=== PATIENT | female | born 1940 | race Caucasian/White ===

== ENCOUNTER → 2016-06-01 | Outpatient (CLI) | payer MEDICARE ==
[2016-06-01 08:29] LABS: EKG EKG PERFORMED
[2016-06-01 09:16] LABS: Basophils % (A) 1 %; CH 28.5; Eosinophils # (A) 0.3 k/uL (0-0.7); Eosinophils % (A) 5 %; HCT 39.8 % (34.0-46.0); HDW 2.48; HGB 12.3 gm/dL (11.4-16.0); Hypochromasia Slight; Luc # (Auto) 0.07; Luc % (Auto) 1; Lymphocytes # (A) 1.2 k/uL (1.0-4.8); Lymphocytes % (A) 21 %; MCH 28.5 pg (25.0-35.0); MCHC 30.9 g/dL (31.0-37.0); MCV 92.4 fL (80.0-100.0); Mean Platelet Volume 7.3; Monocytes # (A) 0.3 k/uL (0-1.0); Monocytes % (A) 6 %; Neutrophils # (A) 3.8 k/uL (1.3-7.7); Neutrophils % (A) 67 %; RDW 13.7 % (11.5-15.5); WBC 5.7 k/uL (3.8-10.6)
[2016-06-01 09:20] LABS: INR 1.1 (<1.1); Partial Thromboplastin Time 23.3 sec (22.0-30.0); Prothrombin Time 10.7 sec (9.0-12.0)
[2016-06-01 09:51] LABS: Anion Gap 11 mmol/L; Blood Urea Nitrogen 23 mg/dL (7-17); Calcium 9.5 mg/dL (8.4-10.2); Carbon Dioxide 26 mmol/L (22-30); Chloride 105 mmol/L (98-107); Glucose 192 mg/dL (74-99); Non-African American GFR(MDRD) 50 (>60 ml/min/1.73 sqM); Potassium 4.6 mmol/L (3.5-5.1); Sodium 142 mmol/L (137-145)
== END | disposition home or self-care (01) ==
LOC: LABPAT 08:15
PROVIDERS: ATTEND Urology
DX: Z01.810 Encounter for preprocedural cardiovascular examination (principal); N20.1 Calculus of ureter; R07.9 Chest pain, unspecified; R53.83 Other fatigue; R35.0 Frequency of micturition; E11.9 Type 2 diabetes mellitus without complications
CPT/HCPCS: 80048; 85025; 85610; 85730; 87077; 87086; 87186; 93005

== ENCOUNTER → 2016-07-25 | Outpatient (CLI) | payer MEDICARE ==
--- NOTE | 2016-07-25 09:35 | XR ---
EXAMINATION TYPE: XR KUB DATE OF EXAM: 07/25/2016 9:28 AM CLINICAL HISTORY: Right-sided stent and kidney stone. TECHNIQUE: 2 supine KUB images of the abdomen are obtained COMPARISON: CT abdomen pelvis May 02, 2016. FINDINGS: There is new right sided double-J ureter stent. Previously visualized 8 mm right mid ureter calculus is not clearly identified. Some scattered pelvic phleboliths are felt present. No left-side d nephrolithiasis is seen. Some vascular calcification is also redemonstrated. Large gallstones right upper quadrant are again seen. There is redemonstration of 6 mm intrahepatic g allstone. There is overall nonobstructive bowel gas pattern. Mild to moderate axial joint space loss in both hips is seen. Degenerative spurring greater trochanter level right hip is redemonstrated. Spu rring and subchondral cystic change pubic symphysis is noted. There is disc space narrowing with vacu um disc phenomenon right L2-L3 level. IMPRESSION: Suspect interval successful treatment and passage of right mid ureter calculus.
== END | disposition home or self-care (01) ==
LOC: RADXRMAIN 09:18
PROVIDERS: ATTEND Urology
DX: N20.1 Calculus of ureter (principal)
CPT/HCPCS: 74000

== ENCOUNTER → 2016-08-29 | Outpatient (CLI) | payer MEDICARE ==
--- NOTE | 2016-08-29 08:44 | XR ---
EXAMINATION TYPE: XR abdomen 1V DATE OF EXAM: 08/29/2016 7:47 AM COMPARISON: 07/25/2016 INDICATION: Hydronephrosis renal stones TECHNIQUE: Single view abdomen frontal projection FINDINGS: Normal colonic bowel gas is present. Fecal debris is within the transverse colon. Nonspecific small b owel gas is in the mid abdomen. Gallstones are in the right upper quadrant. Psoas margins are normal. There is a 0.7 cm calcification near the level of the proximal right 11th rib of uncertain etiology may be as a renal stone. No organomegaly is present. IMPRESSION: 1. Cholelithiasis. 2. Possible superior pole renal stone present previously.
--- NOTE | 2016-08-29 09:18 | US ---
EXAMINATION TYPE: US renals and bladder DATE OF EXAM: 08/29/2016 7:39 AM COMPARISON: 05/02/[address] CLINICAL HISTORY: R93.4 hydronephrosis. EXAM MEASUREMENTS: Right Kidney: 10.0 x 5.7 x 5.3 cm Left Kidney: 11.6 x 5.3 x 4.8 cm Post Void Residual Volume: * Bladder sub optimally full Right Kidney: Previous Hydronephrosis and renal calculi are not seen on this study. Kidney appears s omewhat lobated. Left Kidney: Small renal cysts as seen previously. Kidney appears somewhat lobated. Bladder: Sub optimally full. No masses seen. Urinary bladder is limited distention. Bilateral Jets seen: Yes Normal Post Void Residual: Not completed. There is no evidence for hydronephrosis at this point in time. No nephrolithiasis is seen. No dexter s are identified. The urinary bladder is anechoic. Bilateral ureteral jets are seen. IMPRESSION: 1. Left renal cysts. 2. Previous hydronephrosis is not evident at this time.
== END ==
LOC: RADUSMAIN 07:12
PROVIDERS: ATTEND Urology
DX: Z09 Encounter for follow-up examination after completed treatment for conditions other than malignant neoplasm (principal); N28.1 Cyst of kidney, acquired; K80.20 Calculus of gallbladder without cholecystitis without obstruction
CPT/HCPCS: 74000; 76770

== ENCOUNTER → 2016-09-07 | Outpatient (CLI) | payer MEDICARE ==
--- NOTE | 2016-09-07 14:55 | MM ---
Reason for exam: follow-up at short interval from prior study. Last mammogram was performed 8 months ago. History: Patient is postmenopausal and has history of breast cancer at age 75. Family history of breast cancer in mother and breast cancer in grandmother. Benign MG pre op needle loc LT of the left breast, June 23, 2015. Malignant stereotactic core biopsy, May 2015. Benign US biopsy breast VAD LT of the left breast, September 25, 2014. Physical Findings: Nurse did not find any significant physical abnormalities on exam. MG Diagnostic Mammo LT w CAD CC, MLO, and ML view(s) were taken of the left breast. Prior study comparison: December 25, 2015, bilateral MG 3d diag mammo w/cad BENNY. May 25, 2015, left breast MG 3d diag mammo w/cad LT. The breast tissue is heterogeneously dense. This may lower the sensitivity of mammography. No suspicious calcifications are seen. Stable post lumpectomy changes in the left breast. Continued skin thickening and cranial caudal recommended. Consider punch biopsy if clinically indicated. No significant new findings when compared with previous films. These results were verbally communicated with the patient and result sheet given to the patient on 09/07/16. ASSESSMENT: Probably benign, BI-RAD 3 RECOMMENDATION: Follow-up diagnostic mammogram of both breasts in 4 months. Back on schedule for December 2016. Manage patient on a clinical basis.
== END | disposition home or self-care (01) ==
LOC: RADMAMWWP 13:35
PROVIDERS: ATTEND Family Medicine
DX: D49.3 Neoplasm of unspecified behavior of breast (principal)

== ENCOUNTER → 2017-01-25 | Outpatient (CLI) | payer MEDICARE ==
--- NOTE | 2017-01-27 09:11 | MM ---
Reason for exam: follow-up at short interval from prior study. Last mammogram was performed 5 months ago. History: Patient is postmenopausal and has history of breast cancer at age 75. Family history of breast cancer in mother and breast cancer in grandmother. Benign MG pre op needle loc LT of the left breast, June 23, 2015. Malignant stereotactic core biopsy, May 2015. Benign US biopsy breast VAD LT of the left breast, September 25, 2014. Physical Findings: Nurse did not find any significant physical abnormalities on exam. MG 3D Diag Mammo W/Cad BENNY Bilateral CC and MLO view(s) were taken. Prior study comparison: September 07, 2016, left breast MG diagnostic mammo LT w CAD. December 25, 2015, bilateral MG 3d diag mammo w/cad BENNY. There are scattered fibroglandular densities. There is continued left breast skin thickening. Post surgical biopsy clips. No significant new findings when compared with previous films. These results were verbally communicated with the patient and result sheet given to the patient on 01/25/17. ASSESSMENT: Probably benign, BI-RAD 3 RECOMMENDATION: Follow-up diagnostic mammogram of the left breast in 6 months. Manage patient on a clinical basis, skin thickening in left breast.
== END | disposition home or self-care (01) ==
LOC: RADMAMWWP 15:04
PROVIDERS: ATTEND Internal Medicine Hematology & Oncology
DX: R92.8 Other abnormal and inconclusive findings on diagnostic imaging of breast (principal)
CPT/HCPCS: G0204; G0279

== ENCOUNTER → 2017-07-31 | Outpatient (CLI) | payer MEDICARE ==
--- NOTE | 2017-07-31 09:18 | BD ---
EXAMINATION TYPE: MG DEXA axial skeleton. DATE OF EXAM: 07/31/2017 COMPARISON: 2016 CLINICAL HISTORY: osteopenia. Postmenopausal female. Height: 5'5 Weight: 171 FRAX RISK QUESTIONS: Alcohol (3 or more units per day): no Family History (Parent hip fracture): no Glucocorticoids (More than 3mos): no (Ex: prednisone, prednisolone, methylprednisolone, dexamethasone, and hydrocortisone). History of Fracture in Adulthood: no Secondary Osteoporosis: 1. Type 1 Diabetes: no 2. Hyperthyroidism: no 3. Menopause before 45: no 4. Malnutrition: no 5. Chronic liver disease: no Rheumatoid Arthritis: no Current Tobacco Use: no RISK FACTORS HISTORY OF: Family History of Osteoporosis: Active: Postmenopausal woman: MEDICATIONS: Additional Medications: heart ,blood thinner Additional History: breast cancer 2014 EXAM MEASUREMENTS: Bone mineral densitometry was performed using the [employer] System. Bone mineral density as measured about the Lumbar spine is: ----- L1-L4(G/cm2): 1.240 T Score Values are as follows: ----- L2: 1.3 ----- L3: 2.1 ----- L4: -0.7 ----- L1-L4: 0.5 Bone mineral density has: Increased 1.2% since study of: 12/25/2015 Bone mineral density about the R hip (g/cm2): 0.727 Bone mineral density about the L hip (g/cm2): 0.723 T Score values are as follows: -----R Neck: -2.2 -----L Neck: -2.3 -----R Total: -1.6 -----L Total: -1.4 Bone mineral density has: Decreased -4.5% since study of: 12/25/2015 IMPRESSION: Osteopenia (T Score between -2.5 and -1). There is slightly increased risk of fracture and the patient may be considered for treatment. Re-Screen 2-5 years. NOTE: T-SCORE=SD OF THE YOUNG ADULT MEAN.
--- NOTE | 2017-07-31 11:56 | MM ---
Reason for exam: follow-up at short interval from prior study. Last mammogram was performed 6 months ago. History: Patient is postmenopausal and has history of breast cancer at age 75. Family history of breast cancer in mother and breast cancer in grandmother. Benign MG pre op needle loc LT of the left breast, June 23, 2015. Malignant stereotactic core biopsy, May 2015. Benign US biopsy breast VAD LT of the left breast, September 25, 2014. Physical Findings: Nurse did not find any significant physical abnormalities on exam. MG 3D Diag Mammo W/Cad LT CC and MLO view(s) were taken of the left breast. Prior study comparison: January 25, 2017, bilateral MG 3d diag mammo w/cad BENNY. September 07, 2016, left breast MG diagnostic mammo LT w CAD. There are scattered fibroglandular densities. No suspicious abnormality. Post therapy changes on the left breast. These results were verbally communicated with the patient and result sheet given to the patient on 07/31/17. ASSESSMENT: Benign, BI-RAD 2 RECOMMENDATION: Follow-up diagnostic mammogram of both breasts in 6 months.
== END | disposition home or self-care (01) ==
LOC: RADBDWWP 08:13
PROVIDERS: ATTEND Internal Medicine Hematology & Oncology
DX: C50.412 Malignant neoplasm of upper-outer quadrant of left female breast (principal); M85.80 Other specified disorders of bone density and structure, unspecified site; N95.1 Menopausal and female climacteric states; Z79.890 Hormone replacement therapy
CPT/HCPCS: 77080; 77065; G0279

== ENCOUNTER → 2018-02-02 | Outpatient (CLI) | payer MEDICARE ==
--- NOTE | 2018-02-02 11:16 | MM ---
Reason for exam: additional evaluation requested from prior study. Last mammogram was performed 6 months ago. History: Patient is postmenopausal and has history of breast cancer at age 75. Family history of breast cancer in mother and breast cancer in grandmother. Benign MG pre op needle loc LT of the left breast, June 23, 2015. Malignant stereotactic core biopsy, May 2015. Benign US biopsy breast VAD LT of the left breast, September 25, 2014. Physical Findings: Nurse did not find any significant physical abnormalities on exam. MG 3D Diag Mammo W/Cad BENNY Bilateral CC and MLO view(s) were taken. Technologist: Natalie Casanova RT (R)(M) Prior study comparison: July 31, 2017, left breast MG 3d diag mammo w/cad LT. January 25, 2017, bilateral MG 3d diag mammo w/cad BENNY. There are scattered fibroglandular densities. Post surgical changes on the left breast. No significant new findings when compared with previous films. These results were verbally communicated with the patient and result sheet given to the patient on 02/02/18. ASSESSMENT: Benign, BI-RAD 2 RECOMMENDATION: Follow-up diagnostic mammogram of both breasts in 1 year.
== END | disposition home or self-care (01) ==
LOC: RADMAMWWP 09:27
PROVIDERS: ATTEND Internal Medicine Hematology & Oncology
DX: R92.8 Other abnormal and inconclusive findings on diagnostic imaging of breast (principal); Z85.3 Personal history of malignant neoplasm of breast
CPT/HCPCS: 77066; G0279; 77062

== ENCOUNTER → 2019-02-20 | Outpatient (CLI) | payer MEDICARE ==
--- NOTE | 2019-02-20 08:40 | MM ---
Reason for exam: additional evaluation requested from prior study. Last mammogram was performed 1 year and 1 month ago. History: Patient is postmenopausal and has history of breast cancer at age 75. Family history of breast cancer in mother and breast cancer in grandmother. Benign MG pre op needle loc LT of the left breast, June 23, 2015. Malignant stereotactic core biopsy, May 2015. Benign US biopsy breast VAD LT of the left breast, September 25, 2014. Physical Findings: Nurse did not find any significant physical abnormalities on exam. MG 3D Diag Mammo W/Cad BENNY Bilateral CC and MLO view(s) were taken. Prior study comparison: February 02, 2018, bilateral MG 3d diag mammo w/cad BENNY. July 31, 2017, left breast MG 3d diag mammo w/cad LT. There are scattered fibroglandular densities. Stable post operative changes in the left breast. No suspicious mass or calcifications. These results were verbally communicated with the patient and result sheet given to the patient on 02/20/19. ASSESSMENT: Benign, BI-RAD 2 RECOMMENDATION: Follow-up diagnostic mammogram of both breasts in 1 year.
--- NOTE | 2019-02-20 12:21 | BD ---
EXAMINATION TYPE: Axial Bone Density DATE OF EXAM: 02/20/2019 COMPARISON: 2018 CLINICAL HISTORY: breast cancer Height: 5'4 05/23 Weight: 162 FRAX RISK QUESTIONS: History of Fracture in Adulthood: y Secondary Osteoporosis: RISK FACTORS HISTORY OF: Postmenopausal woman: y MEDICATIONS: Osteoporosis Medications: Which medication: Actonel How Lon years Additional Medications: heart , breast cancer Additional History: breast cancer EXAM MEASUREMENTS: Bone mineral densitometry was performed using the [employer] System. Bone mineral density as measured about the Lumbar spine is: ----- L1-L4(G/cm2): 1.227 T Score Values are as follows: ----- L2: 1.9 ----- L3:-0.1 ----- L4: -0.2 ----- L1-L4: 0.4 Bone mineral density has: Decreased -2.5% since study of: 12/31/2017 Bone mineral density about the R hip (g/cm2): 0.717 Bone mineral density about the L hip (g/cm2): 0.749 T Score values are as follows: -----R Neck: --2.3 -----L Neck: -2.1 -----R Total: -1.4 -----L Total: -1.0 Bone mineral density has: Increased 4.6% since study of: 07/31/2017 IMPRESSION: Osteopenia right femora. NOTE: T-SCORE=SD OF THE YOUNG ADULT MEAN.
== END | disposition home or self-care (01) ==
LOC: RADMAMWWP 07:53
PROVIDERS: ATTEND Internal Medicine Hematology & Oncology
DX: C50.412 Malignant neoplasm of upper-outer quadrant of left female breast (principal); M85.88 Other specified disorders of bone density and structure, other site; N95.1 Menopausal and female climacteric states; Z85.3 Personal history of malignant neoplasm of breast; Z79.890 Hormone replacement therapy
CPT/HCPCS: 77080; 77066; G0279; 77062

== ENCOUNTER 2019-08-12 17:06 | Inpatient (IN) | payer MEDICARE ==
[2019-08-12 17:14] LABS: Glucose,Whole Blood 222 mg/dL (75-99)
[2019-08-12 17:32] LABS: Basophils % (A) 0 %; Eosinophils # (A) 0.3 k/uL (0-0.7); Eosinophils % (A) 5 %; HCT 47.2 % (34.0-46.0); HGB 15.4 gm/dL (11.4-16.0); Lymphocytes % (A) 14 %; MCH 30.3 pg (25.0-35.0); MCHC 32.7 g/dL (31.0-37.0); MCV 92.8 fL (80.0-100.0); Mean Platelet Volume 7.5; Monocytes # (A) 0.4 k/uL (0-1.0); Monocytes % (A) 5 %; Neutrophils # (A) 5.5 k/uL (1.3-7.7); Neutrophils % (A) 75 %; Platelet Count 257 k/uL (150-450); RBC 5.09 m/uL (3.80-5.40); RDW 13.3 % (11.5-15.5); WBC 7.3 k/uL (3.8-10.6)
[2019-08-12 17:40] LABS: Creatine Kinase 54 U/L (30-135)
--- NOTE | 2019-08-12 17:40 | CT ---
EXAMINATION TYPE: CT brain wo con for TPA DATE OF EXAM: 08/12/2019 HISTORY: Altered mental status. CT DLP: 1102.8 mGycm. Automated Exposure Control for Dose Reduction was Utilized. TECHNIQUE: CT scan of the head is performed without contrast. COMPARISON: CT Brain July 14 2010. FINDINGS: There is no acute intracranial hemorrhage or midline shift identified. There is diffuse v entricular and sulcal prominence consistent with diffuse age-related cerebral atrophy. There is low- attenuation in the periventricular white matter consistent with chronic small vessel ischemic change. The globes are intact and the visualized sinuses are clear. IMPRESSION: No acute intracranial hemorrhage or midline shift. There is mild diffuse age-related ce rebral atrophy and chronic small vessel ischemic change identified on current study slightly progress ed from 2011 CT.
[2019-08-12 17:41] LABS: INR 0.9 (<1.2); Partial Thromboplastin Time 23.7 sec (22.0-30.0); Prothrombin Time 9.9 sec (9.0-12.0)
[2019-08-12 17:52] LABS: Creatine Kinase MB 2.2 ng/mL (0.0-2.4); Troponin I <0.012 ng/mL (0.000-0.034)
[2019-08-12 17:54] LABS: Albumin 4.5 g/dL (3.5-5.0); Calcium 9.5 mg/dL (8.4-10.2); Potassium 4.8 mmol/L (3.5-5.1); Total Bilirubin 0.8 mg/dL (0.2-1.3); Total Protein 7.1 g/dL (6.3-8.2)
--- NOTE | 2019-08-12 17:59 | XR ---
EXAMINATION TYPE: XR chest 2V DATE OF EXAM: 08/12/2019 COMPARISON: NONE HISTORY: Weakness and facial droop. TECHNIQUE: Frontal and lateral views of the chest are obtained. FINDINGS: Elevated right hemidiaphragm. There is chronic parenchymal change without suspicious focal air space opacity, pleural effusion, or pneumothorax seen. The cardiac silhouette size is enlarged. Overlying EKG leads. The osseous structures are demineralized. IMPRESSION: Cardiomegaly and chronic parenchymal changes with elevated right hemidiaphragm. No suspi cious acute pulmonary infiltrate.
--- NOTE | 2019-08-12 18:07 | CT ---
EXAMINATION TYPE: CT angio head neck DATE OF EXAM: 08/12/2019 HISTORY: Altered mental status. COMPARISON: CT brain earlier today CT DLP: 351.3 mGycm. Automated Exposure Control for Dose Reduction was Utilized. TECHNIQUE: CTA scan of the head and neck are performed with IV Contrast, patient injected with 65ml mL of Isovue 370, axial images are obtained, coronal and sagittal reformatted images are reviewed. Th ree-D reconstructed images are created on an independent workstation and reviewed. FINDINGS: Carotid/Vascular Structures: Normal three-vessel origin from aortic arch. Right common carotid artery shows normal origin from right brachiocephalic artery. Severe mixed plaque origin of right external carotid artery likely cause significant stenosis. More mild plaque at right carotid bulb. No signific ant plaque or stenosis in the right common or internal carotid artery. No significant plaque or stenosis in left common or internal carotid arteries including carotid bulb. Patent external carotid artery without significant plaque or stenosis. Tortuous course to the proxim al to mid left internal carotid artery with medial deviation axial image 53. Codominant vertebrobasilar system. Vertebral arteries are patent to basilar junction. Hypoplastic hortencia ateral posterior communicating arteries. No significant focal stenosis or aneurysmal change. Images of the anterior circulation show patent anterior communicating artery. There is no significant focal stenosis or aneurysmal change seen. Other: Dextroconvex scoliosis centered C6 level. Multilevel disc space narrowing and spurring C4-C5 t hrough the C6-C7 levels. Small focus of groundglass opacity right lung apex axial image 21, correlate clinically. Edema and/or infiltrate are in the differential. IMPRESSION: 1. No significant stenosis in common or internal carotid arteries bilaterally. 2. No significant stenosis or aneurysmal change at the level of the [place].
--- NOTE | 2019-08-12 18:16 | ED ---
General Adult HPI - General Chief complaint: Neuro Symptoms/Deficit Stated complaint: Stroke Symptoms Time Seen by Provider: 08/12/19 17:10 Source: EMS Mode of arrival: EMS Limitations: no limitations - History of Present Illness Initial comments: The patient is an 79-year-old female with history of A. fib on Eliquis who presents to the emergency department at 5 pm with reported left-sided facial droop and left upper extremity weakness. Patient states that she did not feel well yesterday. Today she was attempting to use the restroom around 1 PM when she states that her legs collapsed underneath her. She stated that her daughter then assisted her to bed and her daughter noted facial drooping. The patient denies a previous history of CVA or deficits. She does take Eliquis for afib and has been compliant with it. Last dose was taken this morning. She reports a recent UTI and is on her last day of Macrobid. Denies any chest pain or shortness of breath. No headaches or visual changes. Denies vertigo or ataxia. Admits to slurring of her speech. No fevers, chills, cough, shortness of breath. There are no alleviating, precipitating or modifying factors - Related Data Home Medications Medication Instructions Recorded Confirmed Anastrozole [Arimidex] 1 mg PO DAILY 05/02/16 08/12/19 Glimepiride [Amaryl] 1 mg PO DAILY 05/02/16 08/12/19 metFORMIN HCL 1,000 mg PO BID 05/02/16 08/12/19 Cranberry Fruit Extract [Cranberry] 500 mg PO DAILY 08/12/19 08/12/19 Empagliflozin [Jardiance] 25 mg PO DAILY 08/12/19 08/12/19 Green Tea [place] Extract [Green Tea 250 mg PO DAILY 08/12/19 08/12/19 Extract] Metoprolol Tartrate [Lopressor] 25 mg PO DAILY 08/12/19 08/12/19 Nitrofurantoin Monohyd/M-Cryst 100 mg PO Q12H 08/12/19 08/12/19 [Macrobid] Allergies Allergy/AdvReac Type Severity Reaction Status Date / Time venom-honey bee Allergy Swelling Verified 08/12/19 19:00 [bee venom (honey bee)] anesthesia Allergy severe Uncoded 08/12/19 19:00 muscle pain Review of Systems ROS Statement: Those systems with pertinent positive or pertinent negative responses have been documented in the HPI. ROS Other: All systems not noted in ROS Statement are negative. Past Medical History Past Medical History: Cancer, Diabetes Mellitus, Osteoarthritis (OA) Additional Past Medical History / Comment(s): "SPASTIC BOWEL", HX OF SHINGLES, Kidney stones History of Any Multi-Drug Resistant Organisms: ESBL Date of last positivie culture/infection: 04/17/19 ESBL E.coli MDRO Source:: Urine Past Surgical History: Section, Tonsillectomy Additional Past Surgical History / Comment(s): Lumpectomy left breast with lymph node removal, stent to R Ureter in 2015. Past Anesthesia/Blood Transfusion Reactions: No Reported Reaction Past Psychological History: No Psychological Hx Reported Smoking Status: Former smoker Past Alcohol Use History: None Reported Past Drug Use History: None Reported - Past Family History Mother Family Medical History: Cancer Additional Family Medical History / Comment(s): MOTHER AND GRANDMOTHER HAD BREAST CANCER General Exam Limitations: no limitations General appearance: alert, in no apparent distress Head exam: Present: atraumatic Eye exam: Present: PERRL, EOMI ENT exam: Present: mucous membranes moist, other Neck exam: Present: normal inspection. Absent: tenderness, meningismus, l ymphadenopathy Respiratory exam: Present: normal lung sounds bilaterally. Absent: respiratory distress, wheezes, rales, rhonchi, stridor Cardiovascular Exam: Present: normal rhythm, irregular rhythm GI/Abdominal exam: Present: soft, normal bowel sounds. Absent: distended, tenderness, guarding, rebound, rigid Neurological exam: Present: alert, oriented X3, other (Left lower facial droop, left upper extremity and lower extremity with drift. Web Editor strength is equal upon initial exam. Mild dysarthria. No expressive aphasia. No weakness in the right arm or leg. Strength in the left upper and lower extremity 4/5. No visual deficit. ) Skin exam: Present: warm Course Vital Signs 08/12/19 08/12/19 08/12/19 17:08 18:00 18:49 Temperature 98.6 F 97.5 F L Pulse Rate 92 101 H Pulse Rate [ 86 Right Supine Radial] Respiratory 19 19 18 Rate Blood Pressure 201/106 162/88 Blood Pressure 159/72 [Right Arm] O2 Sat by Pulse 96 98 95 Oximetry 08/12/19 18:54 Temperature Pulse Rate 77 Pulse Rate [ Right Supine Radial] Respiratory 18 Rate Blood Pressure 156/79 Blood Pressure [Right Arm] O2 Sat by Pulse 99 Oximetry EKG Findings - EKG Comments: EKG Findings:: EKG demonstrates age or fibrillation with a rate of 84. QRS 76. QTC of 465. Inverted T waves in 1 and aVL are old. Inverted T waves in leads V4 through V6 are new Medical Decision Making - Medical Decision Making Upon arrival at 5 pm the patient was promptly placed in a trauma bay 1. NIH stroke scale is performed and the patient has a score of 3 because of her left upper and left lower extremity drift and left facial droop. The patient does put the onset of her symptoms at 1:00 pm. I did order a CT of the brain as well as CT angiography. The patient does go over for imaging as I discussed the case with Dr. Ferreira at 5:20 pm who states he will review the images. The patient is then returned to the trauma bay. Her family does arrive at bedside at 6 pm and I discussed the case with them. They do believe the patient told us an incorrect time for onset. Family member at [facility] does believe that the onset was around 4:00 pm while the daughter that was with the patient at the time states that she does believe her symptom onset was around 3:[address] angios are reviewed and are negative. No significant stenosis and common or internal carotid arteries bilaterally. No significant stenosis or aneurysmal change at the level of the platinum of [place]. CT brain demonstrates no acute intracranial hemorrhage or midline shift mild diffuse age-related cerebral atrophy and chronic small vessel ischemic change. The patient is reevaluated. 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 strength previously 5/5 in the upper extremity is now 4/5 and the patient continues to have some drift of the left lower extremity. I discussed the findings with the patient's family and did discuss TPA administration. She does have relative contraindications for age and active anticoagulation use. Family has difficulty coming to a consensus as to the onset of time of her symptoms. The risks and benefits of TPA administration were discussed. They do come to a conclusion against administering TPA to the patient and the patient agrees with this as she remains alert, oriented and capable of making her own decisions. At 6:18, I spoke with Dr. Rodriguez again for recommendations regarding the patient's CT reads and worsening strength in the left upper extremity. He does agree to not administering TPA due to the patient's age, anticoagulation use and unclear onset of symptoms. The patient will be admitted to the hospital. We have called Dr. Fitzgerald and are awaiting his call back. She was transferred to floor in stable condition with no worsening of her neurologic condition at this time. - Lab Data Result diagrams: 08/13/19 05:00 08/13/19 05:00 Lab Results 08/12/19 08/12/19 08/12/19 Range/Units 17:13 17:20 17:20 WBC 7.3 (3.8-10.6) k/uL RBC 5.09 (3.80-5.40) m/uL Hgb 15.4 (11.4-16.0) gm/dL Hct 47.2 H (34.0-46.0) % MCV 92.8 (80.0-100.0) fL MCH 30.3 (25.0-35.0) pg MCHC 32.7 (31.0-37.0) g/dL RDW 13.3 (11.5-15.5) % Plt Count 257 (150-450) k/uL Neutrophils % 75 % Lymphocytes % 14 % Monocytes % 5 % Eosinophils % 5 % Basophils % 0 % Neutrophils # 5.5 (1.3-7.7) k/uL Lymphocytes # 1.0 (1.0-4.8) k/uL Monocytes # 0.4 (0-1.0) k/uL Eosinophils # 0.3 (0-0.7) k/uL Basophils # 0.0 (0-0.2) k/uL PT (9.0-12.0) sec INR (<1.2) APTT (22.0-30.0) sec Sodium 139 (137-145) mmol/L Potassium 4.8 (3.5-5.1) mmol/L Chloride 103 (98-107) mmol/L Carbon Dioxide 24 (22-30) mmol/L Anion Gap 12 mmol/L BUN 27 H (7-17) mg/dL Creatinine 1.14 H (0.52-1.04) mg/dL Est GFR (CKD-EPI)AfAm 52 (>60 ml/min/1.73 sqM) Est GFR (CKD-EPI)NonAf 45 (>60 ml/min/1.73 sqM) Glucose 260 H (74-99) mg/dL POC Glucose (mg/dL) 222 H (75-99) mg/dL POC Glu Engine Builder ID Leah Darden Calcium 9.5 (8.4-10.2) mg/dL Total Bilirubin 0.8 (0.2-1.3) mg/dL AST 29 (14-36) U/L ALT 16 (4-34) U/L Alkaline Phosphatase 83 (38-126) U/L Total Creatine Kinase (30-135) U/L CK-MB (CK-2) (0.0-2.4) ng/mL CK-MB (CK-2) Rel Index Troponin I (0.000-0.034) ng/mL Total Protein 7.1 (6.3-8.2) g/dL Albumin 4.5 (3.5-5.0) g/dL 08/12/19 08/12/19 Range/Units 17:20 17:20 WBC (3.8-10.6) k/uL RBC (3.80-5.40) m/uL Hgb (11.4-16.0) gm/dL Hct (34.0-46.0) % MCV (80.0-100.0) fL MCH (25.0-35.0) pg MCHC (31.0-37.0) g/dL RDW (11.5-15.5) % Plt Count (150-450) k/uL Neutrophils % % Lymphocytes % % Monocytes % % Eosinophils % % Basophils % % Neutrophils # (1.3-7.7) k/uL Lymphocytes # (1.0-4.8) k/uL Monocytes # (0-1.0) k/uL Eosinophils # (0-0.7) k/uL Basophils # (0-0.2) k/uL PT 9.9 (9.0-12.0) sec INR 0.9 (<1.2) APTT 23.7 (22.0-30.0) sec Sodium (137-145) mmol/L Potassium (3.5-5.1) mmol/L Chloride (98-107) mmol/L Carbon Dioxide (22-30) mmol/L Anion Gap mmol/L BUN (7-17) mg/dL Creatinine (0.52-1.04) mg/dL Est GFR (CKD-EPI)AfAm (>60 ml/min/1.73 sqM) Est GFR (CKD-EPI)NonAf (>60 ml/min/1.73 sqM) Glucose (74-99) mg/dL POC Glucose (mg/dL) (75-99) mg/dL POC Glu Engine Builder ID Calcium (8.4-10.2) mg/dL Total Bilirubin (0.2-1.3) mg/dL AST (14-36) U/L ALT (4-34) U/L Alkaline Phosphatase (38-126) U/L Total Creatine Kinase 54 (30-135) U/L CK-MB (CK-2) 2.2 (0.0-2.4) ng/mL CK-MB (CK-2) Rel Index 4.1 Troponin I <0.012 (0.000-0.034) ng/mL Total Protein (6.3-8.2) g/dL Albumin (3.5-5.0) g/dL Critical Care Time Critical Care Time: Yes Critical Care Time: 40 minutes Disposition Clinical Impression: Left arm weakness, Cerebrovascular accident (CVA) Disposition: ADMITTED IP TO THIS [facility] Condition: Stable Is patient prescribed a controlled substance at d/c from ED?: No Decision to Admit Reason: Admit from EC Decision Date: 08/12/19 Decision Time: 18:28
[2019-08-12] MEDS ORDERED: ASPIRIN 81 MG PO STA (18:27)
[2019-08-12] MEDS ORDERED: NALOXONE 0.4 MG/ML 1 ML VIAL IV PRN (18:31)
[2019-08-12] MEDS: SODIUM CHLORIDE 0.9% 1,000 ML IV SCH (18:50)
[2019-08-12 20:10] LABS: Glucose,Whole Blood 251 mg/dL (75-99)
[2019-08-12 20:58] LABS: Appearance,Urine Cloudy (Clear); Bilirubin,Urine Negative (Negative); Blood,Urine Negative (Negative); Budding Yeast,Urine Occasional /hpf; Color,Urine Light Yellow; Glucose,Urine (UA) 4+ (Negative); Ketones,Urine 1+ (Negative); Leukocyte Esterase,Urine Trace (Negative); Mucus,Urine Rare /hpf; Nitrite,Urine Negative (Negative); Protein,Urine Trace (Negative); RBC,Urine 22 /hpf (0-5); Specific Gravity,Urine 1.037 (1.001-1.035); Squamous Epithelial Cell,Urine 2 /hpf (0-4); Urobilinogen,Urine <2.0 mg/dL (<2.0); WBC,Urine 26 /hpf (0-5)
[2019-08-12] MEDS ORDERED: LORazepam 2 MG/ML INJ IV STA (21:25)
[2019-08-12] MEDS: APIXABAN 5 MG TAB PO SCH (21:37)
[2019-08-12] MEDS: NITROFURANTOIN MONOHYD/M-CRYST 100 MG CAP PO SCH (21:37)
[2019-08-13] MEDS: SODIUM CHLORIDE 0.9% 1,000 ML IV SCH ×3 (05:32→23:46)
[2019-08-13 05:48] LABS: Basophils % (A) 0 %; Eosinophils # (A) 0.2 k/uL (0-0.7); Eosinophils % (A) 3 %; HCT 45.6 % (34.0-46.0); Lymphocytes # (A) 0.9 k/uL (1.0-4.8); Lymphocytes % (A) 15 %; MCH 29.1 pg (25.0-35.0); MCHC 30.8 g/dL (31.0-37.0); MCV 94.6 fL (80.0-100.0); Mean Platelet Volume 7.7; Monocytes # (A) 0.4 k/uL (0-1.0); Monocytes % (A) 6 %; Neutrophils # (A) 4.7 k/uL (1.3-7.7); Neutrophils % (A) 74 %; Platelet Count 241 k/uL (150-450); RBC 4.82 m/uL (3.80-5.40); RDW 13.3 % (11.5-15.5); WBC 6.3 k/uL (3.8-10.6)
[2019-08-13 06:02] LABS: Calcium 8.7 mg/dL (8.4-10.2); Potassium 4.3 mmol/L (3.5-5.1)
[2019-08-13 06:04] LABS: Glucose,Whole Blood 166 mg/dL (75-99)
[2019-08-13] MEDS: INSULIN ASPART (NovoLOG) 100 UNIT/ML VIAL SQ SCH ×4 (06:04→21:02)
[2019-08-13] MEDS: APIXABAN 5 MG TAB PO SCH ×2 (08:28→21:06)
[2019-08-13] MEDS: ANASTROZOLE 1 MG TAB PO SCH (08:28)
[2019-08-13] MEDS: GLIMEPIRIDE 1 MG TAB PO SCH (08:33)
[2019-08-13] MEDS: metFORMIN 500 MG TAB PO SCH ×2 (08:33→21:06)
[2019-08-13] MEDS: METOPROLOL TARTRATE 25 MG TAB PO SCH (08:34)
[2019-08-13] MEDS: NITROFURANTOIN MONOHYD/M-CRYST 100 MG CAP PO SCH ×2 (08:34→21:06)
[2019-08-13] MEDS: Empagliflozin [Jardiance] 25 MG PO SCH (10:00)
[2019-08-13] MEDS ORDERED: LORazepam 2 MG/ML INJ IV STA (10:00)
--- NOTE | 2019-08-13 10:55 | P.HPIM ---
History of Present Illness This pleasant 79-year-old female reports having changes in her gait starting approximately on Monday where she found that she had to use a cane which is unlike her normal ambulation pattern, she said that over the weekend and had pr ogressively gotten worse, her daughter noticed while assisting her to get into her bed that she found left facial droop along with significant left upper extremity weakness, she presented to the emergency department for an evaluation of the symptoms. She had a recent UTI and was treated with oral antibiotics which she is finishing her course at this point and felt that her symptoms had improved on the emergency department she had a CT of brain, chest x-ray, CT angiogram of head neck and she has been admitted to the hospital with acute CVA and has a neurological consult. Review of Systems Constitutional: Reports weakness Neurological: Reports balance difficulties, Reports change in speech, Reports gait dysfunction, Reports paralysis (Left upper extremity), Reports weakness Past Medical History Past Medical History: Cancer, Diabetes Mellitus, Osteoarthritis (OA) Additional Past Medical History / Comment(s): "SPASTIC BOWEL", HX OF SHINGLES, Kidney stones History of Any Multi-Drug Resistant Organisms: ESBL Date of last positivie culture/infection: 04/17/19 ESBL E.coli MDRO Source:: Urine Past Surgical History: Section, Tonsillectomy Additional Past Surgical History / Comment(s): Lumpectomy left breast with lymph node removal, stent to R Ureter in 2015. Past Anesthesia/Blood Transfusion Reactions: No Reported Reaction Past Psychological History: No Psychological Hx Reported Smoking Status: Former smoker Past Alcohol Use History: None Reported Past Drug Use History: None Reported - Past Family History Mother Family Medical History: Cancer Additional Family Medical History / Comment(s): MOTHER AND GRANDMOTHER HAD BREAST CANCER Medications and Allergies Home Medications Medication Instructions Recorded Confirmed Type Anastrozole [Arimidex] 1 mg PO DAILY 05/02/16 08/12/19 History Glimepiride [Amaryl] 1 mg PO DAILY 05/02/16 08/12/19 History metFORMIN HCL 1,000 mg PO BID 05/02/16 08/12/19 History Cranberry Fruit Extract [Cranberry] 500 mg PO DAILY 08/12/19 08/12/19 History Empagliflozin [Jardiance] 25 mg PO DAILY 08/12/19 08/12/19 History Green Tea [place] Extract [Green Tea 250 mg PO DAILY 08/12/19 08/12/19 History Extract] Metoprolol Tartrate [Lopressor] 25 mg PO DAILY 08/12/19 08/12/19 History Nitrofurantoin Monohyd/M-Cryst 100 mg PO Q12H 08/12/19 08/12/19 History [Macrobid] Allergies Allergy/AdvReac Type Severity Reaction Status Date / Time venom-honey bee Allergy Swelling Verified 08/12/19 19:00 [bee venom (honey bee)] anesthesia Allergy severe Uncoded 08/12/19 19:00 muscle pain Physical Exam Vitals: Vital Signs Temp Pulse Pulse Resp BP BP Pulse Ox 08/13/19 08:00 97.9 F 79 16 149/94 98 08/13/19 04:00 97.9 F 79 18 152/79 96 08/13/19 02:31 86 08/12/19 22:56 85 18 154/81 95 08/12/19 19:38 97.5 F L 86 18 159/72 96 08/12/19 19:12 96.4 F L 86 16 159/81 08/12/19 18:54 77 18 156/79 99 08/12/19 18:49 97.5 F L 86 18 159/72 95 08/12/19 18:00 101 H 19 162/88 98 08/12/19 17:08 98.6 F 92 19 201/106 96 Intake and Output 08/12/19 08/13/19 08/13/19 22:59 06:59 14:59 Other: Voiding Method Bedpan Bedpan Diaper # Voids 1 1 Weight 69.5 kg 69.5 kg - Constitutional General appearance: mild distress - Respiratory Respiratory: bilateral: CTA - Cardiovascular Rhythm: regular - Gastrointestinal General gastrointestinal: normal bowel sounds, soft - Integumentary Integumentary: normal - Neurologic Left upper extremity weakness Lower extremity weakness - Psychiatric Psychiatric: A&O x's 3, appropriate affect, intact judgment & insight Results CBC & Chem 7: 08/13/19 05:00 08/13/19 05:00 Labs: Abnormal Lab Results - Last 24 Hours (Table) 08/12/19 08/12/19 08/12/19 Range/Units 17:13 17:20 17:20 Hct 47.2 H (34.0-46.0) % MCHC (31.0-37.0) g/dL Lymphocytes # (1.0-4.8) k/uL Chloride (98-107) mmol/L Carbon Dioxide (22-30) mmol/L BUN 27 H (7-17) mg/dL Creatinine 1.14 H (0.52-1.04) mg/dL Glucose 260 H (74-99) mg/dL POC Glucose (mg/dL) 222 H (75-99) mg/dL Urine Appearance (Clear) Ur Specific [place] (1.001-1.035) Urine Protein (Negative) Urine Glucose (UA) (Negative) Urine Ketones (Negative) Ur Leukocyte Esterase (Negative) Urine RBC (0-5) /hpf Urine WBC (0-5) /hpf Urine Mucus (None) /hpf Urine Yeast (Budding) (None) /hpf 08/12/19 08/12/19 08/13/19 Range/Units 20:07 20:40 05:00 Hct (34.0-46.0) % MCHC 30.8 L (31.0-37.0) g/dL Lymphocytes # 0.9 L (1.0-4.8) k/uL Chloride (98-107) mmol/L Carbon Dioxide (22-30) mmol/L BUN (7-17) mg/dL Creatinine (0.52-1.04) mg/dL Glucose (74-99) mg/dL POC Glucose (mg/dL) 251 H (75-99) mg/dL Urine Appearance Cloudy H (Clear) Ur Specific [place] 1.037 H (1.001-1.035) Urine Protein Trace H (Negative) Urine Glucose (UA) 4+ H (Negative) Urine Ketones 1+ H (Negative) Ur Leukocyte Esterase Trace H (Negative) Urine RBC 22 H (0-5) /hpf Urine WBC 26 H (0-5) /hpf Urine Mucus Rare H (None) /hpf Urine Yeast (Budding) Occasional H (None) /hpf 08/13/19 08/13/19 Range/Units 05:00 06:03 Hct (34.0-46.0) % MCHC (31.0-37.0) g/dL Lymphocytes # (1.0-4.8) k/uL Chloride 108 H (98-107) mmol/L Carbon Dioxide 20 L (22-30) mmol/L BUN 20 H (7-17) mg/dL Creatinine (0.52-1.04) mg/dL Glucose 167 H (74-99) mg/dL POC Glucose (mg/dL) 166 H (75-99) mg/dL Urine Appearance (Clear) Ur Specific [place] (1.001-1.035) Urine Protein (Negative) Urine Glucose (UA) (Negative) Urine Ketones (Negative) Ur Leukocyte Esterase (Negative) Urine RBC (0-5) /hpf Urine WBC (0-5) /hpf Urine Mucus (None) /hpf Urine Yeast (Budding) (None) /hpf Microbiology - Last 24 Hours (Table) 08/12/19 20:40 Urine Culture - Preliminary Urine,Voided Chest x-ray: report reviewed (Cardiomegaly and chronic parenchymal changes with elevated right hemidiaphragm no suspicious acute pulmonary infiltrate) CT Scan - head: report reviewed (No acute intracranial hemorrhage or midline shift, there is mild diffuse age-related cerebral atrophy and chronic small vessel ischemic change progression as compared to [address] CT) Thrombosis Risk Factor Assmnt - Choose All That Apply Any of the Below Risk Factors Present?: Yes Each Factor Represents 1 point: Medical pt on bed rest, Swollen legs (current) Other Risk Factors: Yes Each Risk Factor Represents 3 Points: Age 75 years or older Thrombosis Risk Factor Assessment Total Risk Factor Score: 5 Thrombosis Risk Factor Assessment Level: High Risk Assessment and Plan Assessment: Left upper extremity weakness acute CVA Diabetes mellitus type 2 [id number] History of UTI pending urine culture from UA Osteoarthritis Plan: Continue with neurology consultation and recommendations Pending echocardiogram results MR of the brain scheduled later today
--- NOTE | 2019-08-13 11:25 | P.CONS ---
History of Present Illness - Chief Complaint Gait disturbance, left hemiplegia - History of Present Illness I had the opportunity to see patient for inpatient rehab consultation with regard to gait disturbance. She was admitted to [facility] earlier today, August 12 acute onset left-sided weakness including facial droop. Chest x-ray cardiomegaly and chronic change. Head CT with chronic age-related change. Angiogram CT negative. Speech therapy reports left sided facial weakness. Evaluated swallow and recommend dysphagia 2. PT and OT prescribed. Previous functional history as elicited from patient: 79-year-old right-handed white female who is lives in one floor home with daughter and daughter's family including and 3 kids. Daughter does the cooking and laundry. Patient describes independent with driving and shower. Must verify this. Review of Systems Review of systems: ENT: Denies sneezes or discharge. Eyes: Denies discharge or photophobia. Cardiac: Denies chest pain or palpitation. Pulmonary: Denies cough or shortness of breath. Breast: Denies discharge or lumps. Gastrointestinal: Denies nausea, emesis, constipation, diarrhea. Genitourinary: Denies discharge or frequency. Musculoskeletal: Denies muscle or bone aches. Neurologic: Left-sided weakness, somnolence. Endocrine: Denies shakes or sweats. Oncology: Denies cancers. Dermatologic: Denies rash, itching, pruritus. ALLERGY/immunology: Denies sneezes, rashes. Past Medical History Past Medical History: Cancer, Diabetes Mellitus, Osteoarthritis (OA) Additional Past Medical History / Comment(s): "SPASTIC BOWEL", HX OF SHINGLES, Kidney stones History of Any Multi-Drug Resistant Organisms: ESBL Year Discovered:: 04/17/19 ESBL E.coli MDRO Source:: Urine Past Surgical History: Section, Tonsillectomy Additional Past Surgical History / Comment(s): Lumpectomy left breast with lymph node removal, stent to R Ureter in 2015. Past Anesthesia/Blood Transfusion Reactions: No Reported Reaction Past Psychological History: No Psychological Hx Reported Smoking Status: Former smoker Past Alcohol Use History: None Reported Past Drug Use History: None Reported - Past Family History Mother Family Medical History: Cancer Additional Family Medical History / Comment(s): MOTHER AND GRANDMOTHER HAD BREAST CANCER Medications and Allergies Home Medications Medication Instructions Recorded Confirmed Type Anastrozole [Arimidex] 1 mg PO DAILY 05/02/16 08/12/19 History Glimepiride [Amaryl] 1 mg PO DAILY 05/02/16 08/12/19 History metFORMIN HCL 1,000 mg PO BID 05/02/16 08/12/19 History Cranberry Fruit Extract [Cranberry] 500 mg PO DAILY 08/12/19 08/12/19 History Empagliflozin [Jardiance] 25 mg PO DAILY 08/12/19 08/12/19 History Green Tea [place] Extract [Green Tea 250 mg PO DAILY 08/12/19 08/12/19 History Extract] Metoprolol Tartrate [Lopressor] 25 mg PO DAILY 08/12/19 08/12/19 History Nitrofurantoin Monohyd/M-Cryst 100 mg PO Q12H 08/12/19 08/12/19 History [Macrobid] Allergies Allergy/AdvReac Type Severity Reaction Status Date / Time venom-honey bee Allergy Swelling Verified 08/12/19 19:00 [bee venom (honey bee)] anesthesia Allergy severe Uncoded 08/12/19 19:00 muscle pain Physical Exam Vitals: Vital Signs Temp Pulse Pulse Resp BP BP Pulse Ox 08/13/19 08:00 97.9 F 79 16 149/94 98 08/13/19 04:00 97.9 F 79 18 152/79 96 08/13/19 02:31 86 08/12/19 22:56 85 18 154/81 95 08/12/19 19:38 97.5 F L 86 18 159/72 96 08/12/19 19:12 96.4 F L 86 16 159/81 08/12/19 18:54 77 18 156/79 99 08/12/19 18:49 97.5 F L 86 18 159/72 95 08/12/19 18:00 101 H 19 162/88 98 08/12/19 17:08 98.6 F 92 19 201/106 96 Intake and Output 08/12/19 08/13/19 08/13/19 22:59 06:59 14:59 Other: Voiding Method Bedpan Bedpan Diaper # Voids 1 1 Weight 69.5 kg 69.5 kg Skin: Atrophic, intact. General: Medium build and comfortable appearance. Head: Normocephalic, atraumatic. Eyes: Symmetric. Pupils equal round. Ears: Symmetric. Hearing within normal limits. Mouth: Clear. Neck: Supple. Carotid without bruit. Cardiac: Regular rate and rhythm. Lungs: Clear anteriorly and posteriorly. Abdomen: Soft active nontender. Extremities: Normal tone. Neurological: Mental status: Somnolent but cooperative. Cranial nerves: Symmetric facial tone and trapezius. Motor: Active movement right arm and leg. Left arm and leg poor to flaccid. Sensation: Intact right side. DTRs: Symmetric and equal throughout. Mobility: Did not attempt to sit secondary to somnolence. Results CBC & Chem 7: 08/13/19 05:00 08/13/19 05:00 Labs: Abnormal Lab Results - Last 24 Hours (Table) 08/12/19 08/12/19 08/12/19 Range/Units 17:13 17:20 17:20 Hct 47.2 H (34.0-46.0) % MCHC (31.0-37.0) g/dL Lymphocytes # (1.0-4.8) k/uL Chloride (98-107) mmol/L Carbon Dioxide (22-30) mmol/L BUN 27 H (7-17) mg/dL Creatinine 1.14 H (0.52-1.04) mg/dL Glucose 260 H (74-99) mg/dL POC Glucose (mg/dL) 222 H (75-99) mg/dL Urine Appearance (Clear) Ur Specific [place] (1.001-1.035) Urine Protein (Negative) Urine Glucose (UA) (Negative) Urine Ketones (Negative) Ur Leukocyte Esterase (Negative) Urine RBC (0-5) /hpf Urine WBC (0-5) /hpf Urine Mucus (None) /hpf Urine Yeast (Budding) (None) /hpf 08/12/19 08/12/19 08/13/19 Range/Units 20:07 20:40 05:00 Hct (34.0-46.0) % MCHC 30.8 L (31.0-37.0) g/dL Lymphocytes # 0.9 L (1.0-4.8) k/uL Chloride (98-107) mmol/L Carbon Dioxide (22-30) mmol/L BUN (7-17) mg/dL Creatinine (0.52-1.04) mg/dL Glucose (74-99) mg/dL POC Glucose (mg/dL) 251 H (75-99) mg/dL Urine Appearance Cloudy H (Clear) Ur Specific [place] 1.037 H (1.001-1.035) Urine Protein Trace H (Negative) Urine Glucose (UA) 4+ H (Negative) Urine Ketones 1+ H (Negative) Ur Leukocyte Esterase Trace H (Negative) Urine RBC 22 H (0-5) /hpf Urine WBC 26 H (0-5) /hpf Urine Mucus Rare H (None) /hpf Urine Yeast (Budding) Occasional H (None) /hpf 08/13/19 08/13/19 Range/Units 05:00 06:03 Hct (34.0-46.0) % MCHC (31.0-37.0) g/dL Lymphocytes # (1.0-4.8) k/uL Chloride 108 H (98-107) mmol/L Carbon Dioxide 20 L (22-30) mmol/L BUN 20 H (7-17) mg/dL Creatinine (0.52-1.04) mg/dL Glucose 167 H (74-99) mg/dL POC Glucose (mg/dL) 166 H (75-99) mg/dL Urine Appearance (Clear) Ur Specific [place] (1.001-1.035) Urine Protein (Negative) Urine Glucose (UA) (Negative) Urine Ketones (Negative) Ur Leukocyte Esterase (Negative) Urine RBC (0-5) /hpf Urine WBC (0-5) /hpf Urine Mucus (None) /hpf Urine Yeast (Budding) (None) /hpf Microbiology - Last 24 Hours (Table) 08/12/19 20:40 Urine Culture - Preliminary Urine,Voided Assessment and Plan (1) Cerebrovascular accident (CVA) Current Visit: Yes Status: Acute Code(s): I63.9 - CEREBRAL INFARCTION, UNSPECIFIED SNOMED Code(s): 235790316 Plan: Impression: 1. Gait disturbance due to acute onset stroke and left hemiplegia. 2. Diabetes. 3. Lois arthritis. 4. History of cancer. Comments and plan: At this time speech therapy ongoing and PT and OT prescribed. Definite safety concerns anticipated. Must verify discharge plan with daughter. Would otherwise anticipate need and benefit of inpatient rehab.
--- NOTE | 2019-08-13 12:16 | MR ---
"EXAMINATION TYPE: MR brain wo con DATE OF EXAM: 08/13/2019 COMPARISON: CT brain from yesterday HISTORY: CVA, AMS TECHNIQUE: Multiplanar, multisequence imaging of the brain and brainstem is performed without IV cont rast. FINDINGS: Diffusion weighted images demonstrate fairly large area of increased signal on diffusion-weighted yenny ges and diminished signal on ADC mapping that shows T1 hypointensity and T2 hyperintensity involving posterior aspect right external capsule and likely basal ganglia extending superiorly to involve raven na radiata measuring approximately 3.9 cm AP diameter by 1.7 cm transversely axial image 144 series 3 05 by approximately 2.4 cm craniocaudal dimension. Area not well visualized in retrospect on CT one d ay earlier. Likely involvement through portion of the posterior limb right internal capsule. There is background ventricular and sulcal prominence. There are scattered foci of T2 hyperintensity seen throughout the superficial deep and periventricular white matter. Septum pellucidum vergae is pr esent. Midline structures demonstrate normal morphology. The craniocervical junction appears within normal limits. Normal vascular flow voids are present. Mild mucosal thickening inferiorly in bilateral maxil otto sinuses otherwise paranasal sinuses are clear. Globes are intact bilaterally. IMPRESSION: 1. Evolving significant acute right frontal parietal infarct is confirmed. 2. Background mild diffuse cerebral atrophy and moderate chronic small vessel ischemic change is note d. A Yellow level critical message alert has been initiated for Augustus Fitzgerald MD via the [employer] 0 | Critical Results System on 08/13/2019 12:13 PM. This message alert has been sent to Augustus Fitzgerald MD via the preferences provided by the clinician for the receipt of Radiology Critical Findings. Nv ssage ID [id number]."
[2019-08-13 12:29] LABS: Cholesterol 162 mg/dL (<200); HDL Cholesterol 42 mg/dL (40-60); LDL Cholesterol,Calculated 104 mg/dL (0-99); Triglycerides 82 mg/dL (<150)
[2019-08-13 12:34] LABS: Glucose,Whole Blood 162 mg/dL (75-99)
--- NOTE | 2019-08-13 12:48 | P.CNNES ---
History of Present Illness Consult date: 08/13/19 Requesting physician: Kathi Anders Reason for Consult: Acute CVA History of Present Illness: Patient is a 79-year-old right-handed female, still very active, teaches at a college, lives independently, came to the hospital yesterday at 5:06 PM with an acute stroke. Patient has history of atrial fibrillation, on Eliquis, compliant with the medication, presents with left facial droop and left upper extremity weakness. Patient not able to provide any history. According to ED records, patient had mentioned that she was not feeling well the day before. On the day of admission, she was trying to use the restroom at around 1 PM and she stated that her legs collapsed underneath her. Her daughter assisted her to the bed and her daughter noticed facial drooping. No previous history of CVA. Patient had taken last dose of Eliquis in the morning, the day of admission. Patient has history of UTI for which she has been on Macrobid. There were no complaints of chest pain, shortness of breath, headache or visual changes. No fever or chills cough or shortness of breath. Patient underwent Computed tomography scan of head showed no acute intracranial hemorrhage or midline shift. There is mild diffuse age-related cerebral atrophy and chronic small vessel ischemic change identified on current study, slightly progressed from [address] CT. CTA of the head and neck showed no significant stenosis in the common or internal carotid arteries bilaterally. No significant stenosis or aneurysmal change at the level of elim ira of [place]o. EKG showed atrial fibrillation, low voltage QRS, ST and T- wave abnormality, consider lateral ischemia. Patient's UA was cloudy, 4+ glucose, trace leukocyte esterase and 26 WBCs. Urine culture so far negative. Patient's hemoglobin A1c 10.7 on 07/29/2019. Patient was given Ativan 0.5 mg prior to MRI because of claustrophobia. MRI of the brain reported as evolving significant acute right frontal parietal infarct. Background mild diffuse cerebral atrophy and moderate chronic small vessel ischemic changes. On my review, it appears fairly large, almost 3.8 x 1.7 cm acute infarct, which involves right subcortical and periventricular white matter, including right internal capsular region. Review of Systems ROS unobtainable: due to mental status Constitutional: Denies fever Past Medical History Past Medical History: Cancer, Diabetes Mellitus, Osteoarthritis (OA) Additional Past Medical History / Comment(s): "SPASTIC BOWEL", HX OF SHINGLES, Kidney stones History of Any Multi-Drug Resistant Organisms: ESBL Date of last positivie culture/infection: 04/17/19 ESBL E.coli MDRO Source:: Urine Past Surgical History: Section, Tonsillectomy Additional Past Surgical History / Comment(s): Lumpectomy left breast with lymph node removal, stent to R Ureter in 2015. Past Anesthesia/Blood Transfusion Reactions: No Reported Reaction Past Psychological History: No Psychological Hx Reported Smoking Status: Former smoker Past Alcohol Use History: None Reported Past Drug Use History: None Reported - Past Family History Mother Family Medical History: Cancer Additional Family Medical History / Comment(s): MOTHER AND GRANDMOTHER HAD BREAST CANCER Medications and Allergies Home Medications Medication Instructions Recorded Confirmed Type Anastrozole [Arimidex] 1 mg PO DAILY 05/02/16 08/12/19 History Glimepiride [Amaryl] 1 mg PO DAILY 05/02/16 08/12/19 History metFORMIN HCL 1,000 mg PO BID 05/02/16 08/12/19 History Cranberry Fruit Extract [Cranberry] 500 mg PO DAILY 08/12/19 08/12/19 History Empagliflozin [Jardiance] 25 mg PO DAILY 08/12/19 08/12/19 History Green Tea [place] Extract [Green Tea 250 mg PO DAILY 08/12/19 08/12/19 History Extract] Metoprolol Tartrate [Lopressor] 25 mg PO DAILY 08/12/19 08/12/19 History Nitrofurantoin Monohyd/M-Cryst 100 mg PO Q12H 08/12/19 08/12/19 History [Macrobid] Allergies Allergy/AdvReac Type Severity Reaction Status Date / Time venom-honey bee Allergy Swelling Verified 08/12/19 19:00 [bee venom (honey bee)] anesthesia Allergy severe Uncoded 08/12/19 19:00 muscle pain Physical Examination - Vital Signs Vital Signs: Vital Signs Temp Pulse Pulse Resp BP BP Pulse Ox 08/13/19 08:00 97.9 F 79 16 149/94 98 08/13/19 04:00 97.9 F 79 18 152/79 96 08/13/19 02:31 86 08/12/19 22:56 85 18 154/81 95 08/12/19 19:38 97.5 F L 86 18 159/72 96 08/12/19 19:12 96.4 F L 86 16 159/81 08/12/19 18:54 77 18 156/79 99 08/12/19 18:49 97.5 F L 86 18 159/72 95 08/12/19 18:00 101 H 19 162/88 98 08/12/19 17:08 98.6 F 92 19 201/106 96 Intake and Output 08/12/19 08/13/19 08/13/19 22:59 06:59 14:59 Other: Voiding Method Bedpan Bedpan Diaper # Voids 1 1 Weight 69.5 kg 69.5 kg On examination patient is an elderly female, who is very somnolent, due to receiving Ativan, and is also partly from the stroke. Patient has clear speech, with no aphasia. Able to name objects like thumb and ear. Patient able to answer questions appropriately, but appears very somnolent. Pupils are round and reactive to light. Gaze is midline. Extraocular muscles could not be tested. Patient has left facial weakness. Patient did not protrude her tongue. Visual allen could not be tested. Her right arm and leg is perfectly normal. Left-sided revealed flaccid left arm, and left leg also appears very weak, does not move to command. Patient has Babinski on the left side. Sensory examination showed that patient was feeling on both sides. There is no carotid bruit, S1 and S2 audible. Peripheral pulses present. Results - Laboratory Findings CBC and BMP: 08/13/19 05:00 08/13/19 05:00 Abnormal Lab Findings: Abnormal Labs 08/12/19 08/12/19 08/12/19 17:13 17:20 17:20 Hct 47.2 H MCHC Lymphocytes # Chloride Carbon Dioxide BUN 27 H Creatinine 1.14 H Glucose 260 H POC Glucose (mg/dL) 222 H Urine Appearance Ur Specific [place] Urine Protein Urine Glucose (UA) Urine Ketones Ur Leukocyte Esterase Urine RBC Urine WBC Urine Mucus Urine Yeast (Budding) 08/12/19 08/12/19 08/13/19 20:07 20:40 05:00 Hct MCHC 30.8 L Lymphocytes # 0.9 L Chloride Carbon Dioxide BUN Creatinine Glucose POC Glucose (mg/dL) 251 H Urine Appearance Cloudy H Ur Specific [place] 1.037 H Urine Protein Trace H Urine Glucose (UA) 4+ H Urine Ketones 1+ H Ur Leukocyte Esterase Trace H Urine RBC 22 H Urine WBC 26 H Urine Mucus Rare H Urine Yeast (Budding) Occasional H 08/13/19 08/13/19 05:00 06:03 Hct MCHC Lymphocytes # Chloride 108 H Carbon Dioxide 20 L BUN 20 H Creatinine Glucose 167 H POC Glucose (mg/dL) 166 H Urine Appearance Ur Specific [place] Urine Protein Urine Glucose (UA) Urine Ketones Ur Leukocyte Esterase Urine RBC Urine WBC Urine Mucus Urine Yeast (Budding) Assessment and Plan Assessment: * Acute ischemic stroke, right MCA vascular territory, involving the subcortical and periventricular white matter including the internal capsule. Possible small vessel, but the stroke appears quite large, therefore embolic stroke is definitely a possibility. * Atrial fibrillation, on long-term anticoagulation with Eliquis. Patient states that she has been compliant with the medication, did not miss the dose. * Diabetes, poorly controlled, hemoglobin A1c 10.7 on 07/29/2019. * Hyperlipidemia Plan: * Continue Eliquis 2.5 mg twice a day, if able to swallow. * Start aspirin 81 mg daily. * 2-D echo has been completed, results pending. Need to rule out left ventricular or left atrial thrombus. Patient however is on anticoagulation. * PT OT, speech therapy. Swallow evaluation. If not able to take by mouth, then will need NGT placement. Patient definitely needs to be continued on anticoagulation. * Permissible hypertension for 24-48 hours. * Optimize control of diabetes, to target hemoglobin A1c <7.0. * Start Lipitor 20 mg daily. * Patient will be a candidate for inpatient rehab.
--- NOTE | 2019-08-13 12:50 | ECHOF ---
Referral Reason:Dr. Funk MEASUREMENTS -------- HEIGHT: 165.1 cm WEIGHT: 69.4 kg BP: 152/69 IVSd: 1.4 cm (0.6 - 1.1) LVIDd: 3.8 cm (3.9 - 5.3) LVPWd: 1.7 cm (0.6 - 1.1) IVSs: 1.7 cm LVIDs: 3.2 cm LVPWs: 1.6 cm LA Diam: 4.8 cm (2.7 - 3.8) LAESV Index (A-L): 39.13 ml/m Ao Diam: 2.7 cm (2.0 - 3.7) AV Cusp: 1.7 cm (1.5 - 2.6) LA Diam: 4.5 cm (2.7 - 3.8) MV EXCURSION: 19.783 mm (> 18.000) MV EF SLOPE: 158 mm/s (70 - 150) EPSS: 0.1 cm MV E Luis Carlos: 0.74 m/s MV DecT: 147 ms MV A Luis Carlos: 0.00 m/s MV E/A Ratio: 306.47 AR PHT: 314 ms RAP: 10.00 mmHg RVSP: 44.99 mmHg FINDINGS -------- Atrial fibrillation. This was a technically adequate study. The left ventricular size is normal. There is moderate concentric left ventricular hypertrophy. O verall left ventricular systolic function is low-normal with, an EF between 50 - 55 %. The right ventricle is normal in size. The left atrium is markedly dilated. LA is severely dilated >40 ml/m2 The right atrial size is normal. There is mild aortic valve sclerosis. There is mild aortic regurgitation. Mild mitral annular calcification present. Moderate mitral regurgitation is present. Moderate tricuspid regurgitation present. There is no evidence of pulmonary hypertension. The rig ht ventricular systolic pressure, as measured by Doppler, is 44.99mmHg. There is no pulmonic regurgitation present. The aortic root size is normal. There is no pericardial effusion. CONCLUSIONS -------- 1. Atrial fibrillation. 2. This was a technically adequate study. 3. The left ventricular size is normal. 4. There is moderate concentric left ventricular hypertrophy. 5. Overall left ventricular systolic function is low-normal with, an EF between 50 - 55 %. 6. The right ventricle is normal in size. 7. The left atrium is markedly dilated. 8. LA is severely dilated >40 ml/m2 9. The right atrial size is normal. 10. There is mild aortic valve sclerosis. 11. There is mild aortic regurgitation. 12. Mild mitral annular calcification present. 13. Moderate mitral regurgitation is present. 14. Moderate tricuspid regurgitation present. 15. There is no evidence of pulmonary hypertension. 16. The right ventricular systolic pressure, as measured by Doppler, is 44.99mmHg. 17. There is no pulmonic regurgitation present. 18. The aortic root size is normal. 19. There is no pericardial effusion. [employer]: Beti Ceja RDCS
[2019-08-13] MEDS: ATORVASTATIN 20 MG TAB PO SCH (15:16)
[2019-08-13 16:33] LABS: Glucose,Whole Blood 120 mg/dL (75-99)
[2019-08-13 20:30] LABS: Glucose,Whole Blood 125 mg/dL (75-99)
[2019-08-14 06:05] LABS: Glucose,Whole Blood 111 mg/dL (75-99)
[2019-08-14] MEDS: INSULIN ASPART (NovoLOG) 100 UNIT/ML VIAL SQ SCH ×4 (06:06→20:45)
[2019-08-14] MEDS: metFORMIN 500 MG TAB PO SCH ×2 (09:02→20:25)
[2019-08-14] MEDS: NITROFURANTOIN MONOHYD/M-CRYST 100 MG CAP PO SCH ×2 (09:03→20:25)
[2019-08-14] MEDS: GLIMEPIRIDE 1 MG TAB PO SCH (09:03)
[2019-08-14] MEDS: METOPROLOL TARTRATE 25 MG TAB PO SCH ×2 (09:03→20:25)
[2019-08-14] MEDS: APIXABAN 5 MG TAB PO SCH ×2 (09:03→20:25)
[2019-08-14] MEDS: ATORVASTATIN 20 MG TAB PO SCH (09:03)
[2019-08-14] MEDS: ANASTROZOLE 1 MG TAB PO SCH (09:03)
[2019-08-14] MEDS: SODIUM CHLORIDE 0.9% 1,000 ML IV SCH ×2 (09:04→20:45)
[2019-08-14] MEDS: Empagliflozin [Jardiance] 25 MG PO SCH (09:04)
--- NOTE | 2019-08-14 11:38 | P.PN ---
Subjective This pleasant 79-year-old female is resting comfortably in bed with eyes closed, she arouses to verbal command continues to have left facial droop, flaccid left upper extremity, weakness left lower extremity, she continues to tolerate dysphagia level II ground diet she has speech therapy in place at this time, she reports having vaginal itching due to recent antibiotic she is denying any distress and shortness of breath any chest pain at this time. Objective - Vital Signs Vital signs: Vital Signs Temp 97.4 F L 08/14/19 04:00 Pulse 77 08/14/19 04:00 Resp 16 08/14/19 04:00 BP 185/88 08/14/19 04:00 Pulse Ox 97 08/14/19 04:00 Intake & Output 08/13/19 08/14/19 08/14/19 18:59 06:59 18:59 Intake Total 900 180 Output Total 1000 300 Balance 900 -1000 -120 Weight 66.7 kg Intake: Intake, IV Titration 800 Amount Sodium Chloride 0.9% 1, 800 000 ml @ 100 mls/hr IV . Q10H [facility] Rx#:[id number] Oral 100 180 Output: Urine 1000 300 Other: Voiding Method Bedpan Bedpan Diaper Diaper # Voids 1 1 # Bowel Movements 1 - Constitutional General appearance: Present: mild distress - Respiratory Respiratory: bilateral: CTA - Cardiovascular Rhythm: irregularly irregular - Gastrointestinal General gastrointestinal: Present: decreased bowel sounds - Integumentary Integumentary: Present: normal - Musculoskeletal Musculoskeletal Comment(s): Flaccid left upper extremity Left lower extremity weakness - Labs CBC & Chem 7: 08/13/19 05:00 08/13/19 05:00 Labs: Abnormal Lab Results - Last 24 Hours (Table) 08/13/19 08/13/19 08/13/19 Range/Units 05:00 12:32 16:31 POC Glucose (mg/dL) 162 H 120 H (75-99) mg/dL LDL Cholesterol, Calc 104 H (0-99) mg/dL 08/13/19 08/14/19 Range/Units 20:29 06:03 POC Glucose (mg/dL) 125 H 111 H (75-99) mg/dL LDL Cholesterol, Calc (0-99) mg/dL Microbiology - Last 24 Hours (Table) 08/12/19 20:40 Urine Culture - Preliminary Urine,Voided Gram Neg Bacilli - Imaging and Cardiology MRI - head: report reviewed (Evolving significant acute right frontal parietal infarct confirmed, background mild diffuse cerebral atrophy and moderate chronic small vessel ischemic change) Assessment and Plan Assessment: Left upper extremity weakness acute CVA Atrial fibrillation persistent controlled rate Eliquis anticoagulation Diabetes mellitus type 2 [id number] History of UTI pending urine culture from UA Osteoarthritis Plan: Continue with neurology consultation and recommendations Continue PT, OT, and speech therapy
[2019-08-14 11:39] LABS: Glucose,Whole Blood 167 mg/dL (75-99)
[2019-08-14] MEDS ORDERED: FLUCONAZOLE 150 MG TAB PO STA (12:04)
--- NOTE | 2019-08-14 15:10 | P.PN ---
Subjective Progress Note Date: 08/14/19 Patient complains of significant sharp throbbing headache on the right orthodox, rates 8/10. No new complaints otherwise. Continues to be left hemiparetic. Please refer to examination below. Objective - Vital Signs Vital signs: Vital Signs Temp 97.5 F L 08/14/19 08:00 Pulse 70 08/14/19 12:00 Resp 20 08/14/19 12:00 BP 179/95 08/14/19 12:00 Pulse Ox 96 08/14/19 12:00 Intake & Output 08/13/19 08/14/19 08/14/19 18:59 06:59 18:59 Intake Total 900 420 Output Total 1000 300 Balance 900 -1000 120 Weight 66.7 kg Intake: Intake, IV Titration 800 Amount Sodium Chloride 0.9% 1, 800 000 ml @ 100 mls/hr IV . Q10H [facility] Rx#:[id number] Oral 100 420 Output: Urine 1000 300 Other: Voiding Method Bedpan Bedpan Bedpan Diaper Diaper Diaper # Voids 1 1 # Bowel Movements 1 - Exam On examination patient is somewhat lethargic, but does wake up, and answers. Keeps her eyes closed. Speech is mildly dysarthric. No aphasia. Pupils are round and reacting. Visual allen could not be tested. Continues to be flaccid in the left arm. Patient has definite improved left ankle, can wiggle it on command, and also tries to flex her left hip to 2. Patient has Babinski on the left. Decreased sensation on the left. - Labs CBC & Chem 7: 08/13/19 05:00 08/13/19 05:00 Labs: Abnormal Lab Results - Last 24 Hours (Table) 08/13/19 08/13/19 08/14/19 Range/Units 16:31 20:29 06:03 POC Glucose (mg/dL) 120 H 125 H 111 H (75-99) mg/dL 08/14/19 Range/Units 11:37 POC Glucose (mg/dL) 167 H (75-99) mg/dL Microbiology - Last 24 Hours (Table) 08/12/19 20:40 Urine Culture - Preliminary Urine,Voided Gram Neg Bacilli Assessment and Plan Assessment: * Acute ischemic stroke, right MCA vascular territory, involving the subcortical and periventricular white matter including the internal capsule. Possible small vessel, but the stroke appears quite large, therefore embolic stroke is definitely a possibility. * Atrial fibrillation, on long-term anticoagulation with Eliquis. Patient states that she has been compliant with the medication, did not miss the dose. * Diabetes, poorly controlled, hemoglobin A1c 10.7 on 07/29/2019. * Hyperlipidemia Plan: * Continue Eliquis 2.5 mg twice a day, and aspirin 81 mg. * Telemetric monitoring showed atrial flutter, atrial fibrillation with controlled rate of 60s and 70s. * Patient complaining of new right temporal headache. We will check computed tomography scan of the head to rule out bleed, and to follow-up on the CVA. * 2-D echo showed atrial fibrillation, moderate concentric LVH, EF 50-55%. Left atrium is markedly dilated. Mild aortic valve sclerosis. * PT OT, speech therapy. Patient able to swallow crushed tablets with applesauce. * Current blood pressure is 175/79. May control blood pressure to 150 systolic. * Optimize control of diabetes, to target hemoglobin A1c <7.0. * Continue Lipitor 20 mg daily. * Patient will be a candidate for inpatient rehab.
--- NOTE | 2019-08-14 15:51 | CT ---
EXAMINATION TYPE: CT brain wo con DATE OF EXAM: 08/14/2019 COMPARISON: 08/12/2019 HISTORY: 79-year-old female right-sided headache, rule out bleed, f/u CVA TECHNIQUE: Examination was done in axial plane without intravenous contrast. Coronal and sagittal r econstructions performed. CT DLP: 1172.4 mGycm Automated exposure control for dose reduction was used. FINDINGS: New hypodensity within the right thomas radiata and right basal ganglia/right subinsular region. No acute intracranial hemorrhage, midline shift or herniation. These changes have minimal associated mass effect onto the body of the right lateral ventricle as compared to 08/12/2019. Atherosclerotic calcifications in the carotid siphons. Normal variation persistent cavum septum pellu cidum. Moderate mucosal thickening right maxillary sinus. IMPRESSION: Evolution to a subacute infarct on the right in the region of the thomas radiata and basal ganglia/regan binsular region. No hemorrhagic transformation. Only minimal mass effect onto the body of the right l ateral ventricle without midline shift.
[2019-08-14] MEDS: LISINOPRIL 5 MG TAB PO SCH (16:00)
[2019-08-14 16:45] LABS: Glucose,Whole Blood 107 mg/dL (75-99)
[2019-08-14 20:45] LABS: Glucose,Whole Blood 119 mg/dL (75-99)
[2019-08-15] MEDS: SODIUM CHLORIDE 0.9% 1,000 ML IV SCH ×3 (06:11→23:45)
[2019-08-15 06:12] LABS: Glucose,Whole Blood 164 mg/dL (75-99)
[2019-08-15] MEDS: INSULIN ASPART (NovoLOG) 100 UNIT/ML VIAL SQ SCH ×4 (06:15→20:14)
[2019-08-15] MEDS: metFORMIN 500 MG TAB PO SCH ×2 (09:13→20:24)
[2019-08-15] MEDS: APIXABAN 5 MG TAB PO SCH ×2 (09:13→20:24)
[2019-08-15] MEDS: LISINOPRIL 5 MG TAB PO SCH (09:14)
[2019-08-15] MEDS: GLIMEPIRIDE 1 MG TAB PO SCH (09:14)
[2019-08-15] MEDS: ATORVASTATIN 20 MG TAB PO SCH (09:14)
[2019-08-15] MEDS: METOPROLOL TARTRATE 25 MG TAB PO SCH ×2 (09:14→20:24)
[2019-08-15] MEDS: NITROFURANTOIN MONOHYD/M-CRYST 100 MG CAP PO SCH (09:14)
[2019-08-15] MEDS: ANASTROZOLE 1 MG TAB PO SCH (09:15)
--- NOTE | 2019-08-15 10:07 | CONS ---
CONSULTATION CHIEF COMPLAINT: CVA Eliza is an 79-year-old lady with history of hypertension, diabetes, paroxysmal atrial fibrillation, who is admitted to hospital with left facial droop and left upper extremity weakness. She has been diagnosed with acute CVA and Cardiology has been consulted because of her history of atrial fibrillation. Patient denies chest pain, difficulty in breathing, palpitations. Patient has been taking the Eliquis regularly. She has a history of UTI. A CT brain did not reveal any intracranial hemorrhage or midline shift. CTA of the head and neck was negative for carotid stenosis. Patient's hemoglobin A1c is 10.7. The MRI of the brain revealed an acute infarct involving the right subcortical area. PAST MEDICAL HISTORY: Significant for paroxysmal atrial fibrillation, hypertension, diabetes. MEDICATIONS: At home include Demadex, Amaryl, metformin, Jardiance, Lopressor and nitrofurantoin. ALLERGIES: There are no known drug allergies. FAMILY HISTORY: Negative for premature coronary artery disease. SOCIAL HISTORY: Negative for current smoking, EtOH abuse or drug abuse. REVIEW OF SYSTEMS: HEENT: Significant for facial droop. CARDIAC: As described above. RESPIRATORY: As described above. GI: Negative. GENITOURINARY: Negative. ALLERGY/IMMUNOLOGY: Negative. SKIN: Negative. MUSCULOSKELETAL: Negative. MANAGER OF INVESTIGATIONS: As described above. PHYSICAL EXAMINATION: On exam, patient is comfortable at rest. Heart rate is 61 beats per minute. Afebrile. Blood pressure is 166/76, O2 saturation is 98%. There is no jugular venous distention. Carotid upstroke is normal. There is no bruit. Chest exam reveals diminished air entry at the bases. Heart exam reveals first and second heart sounds. No gallop. Has a systolic murmur at the left lower sternal border. EKG shows atrial fibrillation with extensive ST-T wave changes. LABS: Show that the hemoglobin is 4.8, platelet count is 240, three sets of troponins are negative, creatinine is normal. LDL cholesterol is 104. ASSESSMENT: 1. Acute cerebrovascular accident in a patient with known atrial fibrillation. 2. Permanent atrial fibrillation with controlled ventricular rate. 3. Hypertension. 4. Diabetes. Patient is on Eliquis 2.5 b.i.d. since she had a stroke in spite of being on Eliquis. We should consider adding an aspirin to her regimen. An echocardiogram on this admission revealed normal LV systolic function, moderate mitral and tricuspid regurgitation with mild pulmonary hypertension. MMODL / IJN: [id number] /
[2019-08-15] MEDS: Empagliflozin [Jardiance] 25 MG PO SCH (10:08)
[2019-08-15] MEDS: ASPIRIN 81 MG PO SCH (11:25)
--- NOTE | 2019-08-15 11:28 | FL ---
EXAMINATION TYPE: FL barium swallow w video DATE OF EXAM: 08/15/2019 COMPARISON: NONE HISTORY: Rule out aspiration TECHNIQUE: Fluoroscopy. FINDINGS: Fluoroscopic guidance was provided for the procedure performed in conjunction with the [facility] pathology department. Please see complete report forthcoming from the Speech Pathology departmen t. Various consistencies from nectar thick to pudding thick consistencies were administered. Fluoroscopy time 2 minutes 1 seconds. Number of images: 0. Silent aspiration was evident with nectar thick liquids. No thin liquids were utilized. No aspiration was evident with honey thick liquids or pudding consistency. No significant pooling was observed in the vallecula. There is marked hesitancy in initiation of swallow. IMPRESSION: 1. Silent aspiration with nectar thick liquids. 2. Hesitancy with initiation of swallowing. 3. Please see complete report forthcoming from the speech pathology.
[2019-08-15 11:46] LABS: Glucose,Whole Blood 306 mg/dL (75-99)
--- NOTE | 2019-08-15 12:11 | P.PN ---
Subjective This pleasant 79-year-old female is resting comfortably in bed after returning back from her video fluoroscopic swallow study, the study shows silent aspiration with nectar thick liquids and hesitancy with initiation of swallowing, she did state that she found swallowing to be difficult and she has to tell herself to swallow, she reports that she was up with physical therapy today and pivoted to the chair with their assistance stating she had to tell herself to move her leg as it is no longer an automatic motion. She has had increase in blood pressure and metoprolol frequency increased and lisinopril added to her medication regimen. Cardiology consultation for atrial fibrillation initiated yesterday,their report was reviewed, urine culture positive for E. coli 50,000 -100,000, ceftriaxone ordered IV piggyback daily and we'll transition over to oral antibiotics upon discharge. Objective - Vital Signs Vital signs: Vital Signs Temp 98 F 08/15/19 11:37 Pulse 64 08/15/19 11:37 Resp 18 08/15/19 11:37 BP 186/84 08/15/19 11:37 Pulse Ox 97 08/15/19 11:37 Intake & Output 08/14/19 08/15/19 08/15/19 18:59 06:59 18:59 Intake Total 660 120 Output Total 300 400 Balance 360 -400 120 Weight 65.5 kg Intake: Oral 660 120 Output: Urine 300 400 Other: Voiding Method Bedpan Bedpan Bedpan Diaper Diaper Diaper # Bowel Movements 1 1 - Constitutional General appearance: Present: mild distress - Respiratory Respiratory: bilateral: CTA - Cardiovascular Rhythm: irregularly irregular - Gastrointestinal General gastrointestinal: Present: decreased bowel sounds, soft - Neurologic Neurologic Comment(s): Left sided facial droop - Musculoskeletal Musculoskeletal Comment(s): Left upper extremity flaccid Left lower extremity weakness Musculoskeletal: Present: left sided weakness - Psychiatric Psychiatric: Present: appropriate affect, intact judgment & insight - Labs CBC & Chem 7: 08/13/19 05:00 08/13/19 05:00 Labs: Abnormal Lab Results - Last 24 Hours (Table) 08/14/19 08/14/19 08/15/19 Range/Units 16:42 20:42 06:11 POC Glucose (mg/dL) 107 H 119 H 164 H (75-99) mg/dL 08/15/19 Range/Units 11:44 POC Glucose (mg/dL) 306 H (75-99) mg/dL Microbiology - Last 24 Hours (Table) 08/12/19 20:40 Urine Culture - Final Urine,Voided Escherichia coli Assessment and Plan Assessment: Acute CVA Urinary tract infection E. coli IV ceftriaxone daily Atrial fibrillation persistent controlled rate Eliquis anticoagulation Hypertension Diabetes mellitus type 2 [id number] Osteoarthritis Plan: Continue with cardiology consultation and recommendations Continue with neurology consultation recommendation Continue IV antibiotic transition to oral antibiotics upon discharge Plan for discharge to rehabilitation tomorrow on oral antibiotics for urinary tract infection
--- NOTE | 2019-08-15 14:22 | P.PN ---
Subjective Progress Note Date: 08/15/19 Patient states her headache is gone. She feels better. Speaking much more clearly, more alert and awake. No new complaints otherwise. Objective - Vital Signs Vital signs: Vital Signs Temp 98 F 08/15/19 11:37 Pulse 64 08/15/19 11:37 Resp 18 08/15/19 11:37 BP 186/84 08/15/19 11:37 Pulse Ox 97 08/15/19 11:37 Intake & Output 08/14/19 08/15/19 08/15/19 18:59 06:59 18:59 Intake Total 660 120 Output Total 300 400 Balance 360 -400 120 Weight 65.5 kg Intake: Oral 660 120 Output: Urine 300 400 Other: Voiding Method Bedpan Bedpan Bedpan Diaper Diaper Diaper # Bowel Movements 1 1 - Exam On examination patient is somewhat lethargic, but does wake up, and answers. Keeps her eyes open for longer period of time. Speech is mildly dysarthric. No aphasia. Pupils are round and reacting. Extraocular muscles are intact. Vis ual allen are full on confrontation with no neglect. Continues to be flaccid in the left arm. Patient has definite improved left ankle, can wiggle it on command, and also tries to flex her left hip to 2+. Patient has Babinski on the left. - Labs CBC & Chem 7: 08/13/19 05:00 08/13/19 05:00 Labs: Abnormal Lab Results - Last 24 Hours (Table) 08/14/19 08/14/19 08/15/19 Range/Units 16:42 20:42 06:11 POC Glucose (mg/dL) 107 H 119 H 164 H (75-99) mg/dL 08/15/19 Range/Units 11:44 POC Glucose (mg/dL) 306 H (75-99) mg/dL Microbiology - Last 24 Hours (Table) 08/12/19 20:40 Urine Culture - Final Urine,Voided Escherichia coli Assessment and Plan Assessment: * Acute ischemic stroke, right MCA vascular territory, involving the subcortical and periventricular white matter including the internal capsule. Possible small vessel, but the stroke appears quite large, therefore embolic stroke is definitely a possibility. * Atrial fibrillation, on long-term anticoagulation with Eliquis. Patient was also on aspirin 81 mg daily. Patient states that she has been compliant with the medication, did not miss the dose. * Diabetes, poorly controlled, hemoglobin A1c 10.7 on 07/29/2019. * Hyperlipidemia * Acute UTI with E. coli. Plan: * Continue Eliquis 2.5 mg twice a day, increase aspirin to 81 mg twice a day, as the stroke happened while being on Eliquis and aspirin 81 mg daily. * Telemetric monitoring showed atrial flutter, atrial fibrillation with controlled rate of 60s and 70s. * Repeat computed tomography scan of head from yesterday showed no hemorrhage, only evolving stroke in the same distribution. * 2-D echo showed atrial fibrillation, moderate concentric LVH, EF 50-55%. Left atrium is markedly dilated. Mild aortic valve sclerosis. * PT OT, speech therapy. * Patient underwent fluoroscopic barium swallow today, which revealed silent aspiration with nectar thick liquids. Hesitancy with initiation of swallowing. Full report pending. Patient able to swallow crushed tablets wi th applesauce. * Optimize control of blood pressure. * Optimize control of diabetes, to target hemoglobin A1c <7.0. * Continue Lipitor 20 mg daily. * Treatment of UTI as per IM. * Patient will be a candidate for inpatient rehab.
[2019-08-15 16:48] LABS: Glucose,Whole Blood 108 mg/dL (75-99)
[2019-08-16 06:54] LABS: Glucose,Whole Blood 125 mg/dL (75-99)
[2019-08-16 06:57] LABS: Glucose,Whole Blood 150 mg/dL (75-99)
[2019-08-16] MEDS: ASPIRIN 81 MG PO SCH (07:24)
[2019-08-16] MEDS: ATORVASTATIN 20 MG TAB PO SCH (07:24)
[2019-08-16] MEDS: METOPROLOL TARTRATE 25 MG TAB PO SCH (07:24)
[2019-08-16] MEDS: metFORMIN 500 MG TAB PO SCH (07:24)
[2019-08-16] MEDS: LISINOPRIL 5 MG TAB PO SCH (07:25)
[2019-08-16] MEDS: APIXABAN 5 MG TAB PO SCH (07:25)
[2019-08-16] MEDS: ANASTROZOLE 1 MG TAB PO SCH (07:26)
[2019-08-16] MEDS: GLIMEPIRIDE 1 MG TAB PO SCH (07:26)
[2019-08-16] MEDS: INSULIN ASPART (NovoLOG) 100 UNIT/ML VIAL SQ SCH ×2 (07:27→12:07)
[2019-08-16] MEDS: Empagliflozin [Jardiance] 25 MG PO SCH (07:28)
[2019-08-16 07:46] VITALS: BP 150/77; PULSE 81; RESP 17; TEMP 98.6
--- NOTE | 2019-08-16 11:05 | P.DS ---
Providers Date of admission: 08/12/19 18:31 Expected date of discharge: 08/16/19 Attending physician: Augustus Fitzgerald Consults: 08/12/19 18:33 Consult Physician Urgent Consulting Provider: Mari Harris Consult Reason/Comments: acute CVA Do you want consulting provider notified?: Yes 08/13/19 10:51 Consult Physician Routine Consulting Provider: Cruz Kerr Consult Reason/Comments: IPR Do you want consulting provider notified?: Yes 08/14/19 12:07 Consult Physician Urgent Consulting Provider: Lisa Harrell Consult Reason/Comments: a fib Do you want consulting provider notified?: Yes Primary care physician: Augustus Fitzgerald Hospital Course: Final diagnosis Acute CVA Urinary tract infection E. coli Atrial fibrillation persistent Hypertension Diabetes mellitus type 2 [id number] Osteoarthritis Discharge disposition Patient is being discharged in a stable condition to [facility] for inpatient rehab. She will follow-up with Dr. Fitzgerald in the outpatient setting upon discharge. Patient will continue on a short course of oral antibiotics in the form of Macrobid twice daily for the next 5 days and then may discontinue. Total time taken is 35 minutes. History of present illness This is an 79-year-old female was recently admitted with gait changes that he gotten worse over the weekend and was found to have left facial droop along with significant left upper extremity weakness and was being closely monitored. Neurology was following. Patient was found to have an acute CVA. Patient underwent MRI showing significant acute right frontal parietal infarct along with background mild diffuse cerebral atrophy and moderate chronic small vessel ischemic changes. Patient was also seen and evaluated by cardiology for atrial fibrillation and was initiated on Eliquis and will continue in the outpatient setting along with a baby aspirin. Patient urine culture resulted with E. coli and was being treated with IV ceftriaxone. E. coli is sensitive to Macrobid and patient will be continued on a short course of 5 days twice daily in the outpatient setting and then may discontinue. Currently no reports of chest pain, shortness of breath, or palpitations. Patient is afebrile. No reports of nausea or vomiting and patient is tolerating dysphagia 1 pured diet with honey thickened liquids. Patient continues to have some left-sided weakness of the upper and lower extremity along with some left-sided facial droop but is showing signs of improvement. Currently patient's condition is stable today for transfer to [facility] for inpatient rehab. On exam vital signs are stable. Temp is 98.6F, pulse is 81, respirations are 17, blood pressure is 150/77, oxygen saturation is 95% on room air. Cardio S1, S2 are present. Respiratory system shows diminished breath sounds at the bases with no wheezing or rhonchi noted. Abdomen is soft and nontender. Nervous system shows left-sided weakness. Please refer to medication reconciliation sheet for a list of medications. Patient Condition at Discharge: Stable Plan - Discharge Summary New Discharge Prescriptions: New Aspirin 81 mg PO DAILY chew Apixaban [Eliquis] 2.5 mg PO BID tab Atorvastatin [Lipitor] 20 mg PO DAILY tab Metoprolol Tartrate [Lopressor] 25 mg PO BID tab INSULIN ASPART (NovoLOG) [NovoLOG (formulary)] 0 unit SQ ACHS vial Lisinopril [Zestril] 5 mg PO DAILY tab Continue metFORMIN HCL 1,000 mg PO BID Glimepiride [Amaryl] 1 mg PO DAILY Anastrozole [Arimidex] 1 mg PO DAILY Green Tea [place] Extract [Green Tea Extract] 250 mg PO DAILY Cranberry Fruit Extract [Cranberry] 500 mg PO DAILY Empagliflozin [Jardiance] 25 mg PO DAILY Nitrofurantoin Monohyd/M-Cryst [Macrobid] 100 mg PO Q12H 5 Days #10 cap Discontinued Metoprolol Tartrate [Lopressor] 25 mg PO DAILY Discharge Medication List Anastrozole [Arimidex] 1 mg PO DAILY 05/02/16 [History] Glimepiride [Amaryl] 1 mg PO DAILY 05/02/16 [History] metFORMIN HCL 1,000 mg PO BID 05/02/16 [History] Cranberry Fruit Extract [Cranberry] 500 mg PO DAILY 08/12/19 [History] Empagliflozin [Jardiance] 25 mg PO DAILY 08/12/19 [History] Green Tea [place] Extract [Green Tea Extract] 250 mg PO DAILY 08/12/19 [History] Apixaban [Eliquis] 2.5 mg PO BID tab 08/16/19 [Rx] Aspirin 81 mg PO DAILY chew 08/16/19 [Rx] Atorvastatin [Lipitor] 20 mg PO DAILY tab 08/16/19 [Rx] INSULIN ASPART (NovoLOG) [NovoLOG (formulary)] 0 unit SQ ACHS vial 08/16/19 [Rx] Lisinopril [Zestril] 5 mg PO DAILY tab 08/16/19 [Rx] Metoprolol Tartrate [Lopressor] 25 mg PO BID tab 08/16/19 [Rx] Nitrofurantoin Monohyd/M-Cryst [Macrobid] 100 mg PO Q12H 5 Days #10 cap 08/16/19 [Rx] Follow up Appointment(s)/Referral(s): Augustus Fitzgerald MD [Primary Care Provider] - 1-2 days Activity/Diet/Wound Care/Special Instructions: Patient is going to [facility] inpatient Activity as tolerated Continue current dysphasia 1 pured diet with honey thickened liquids and one-on-one supervision Continue with Macrobid twice daily for 5 days and then may discontinue. Discharge Disposition: OTHER INSTITUTION NOT DEFINED
[2019-08-16 11:45] LABS: Glucose,Whole Blood 235 mg/dL (75-99)
--- NOTE | 2019-08-16 12:20 | P.PN ---
Subjective Progress Note Date: 08/16/19 Patient is much more alert and awake. Patient denies headache. She feels better. Speaking much more clearly, more alert and awake. No new complaints otherwise. Objective - Vital Signs Vital signs: Vital Signs Temp 98.6 F 08/16/19 07:22 Pulse 81 08/16/19 07:22 Resp 17 08/16/19 08:00 BP 150/77 08/16/19 07:22 Pulse Ox 95 08/16/19 07:22 Intake & Output 08/15/19 08/16/19 08/16/19 18:59 06:59 18:59 Intake Total 120 Output Total 250 Balance 120 -250 Weight 65.4 kg Intake: Oral 120 Output: Urine 250 Other: Voiding Method Bedpan Bedpan Bedpan Diaper Diaper Diaper # Bowel Movements 1 - Exam On examination patient is very much alert and awake. Speech is mildly dysarthric. No aphasia. Pupils are round and reacting. Extraocular muscles are intact. Visual allen are full on confrontation, although sometimes neglect left side on double simultaneous stimulation. Continues to be flaccid in the left arm. Patient's strength of the left ankle is almost normal. Patient still weak in the left hip flexion, not able to bend her left knee. Patient has Babinski on the left. - Labs CBC & Chem 7: 08/13/19 05:00 08/13/19 05:00 Labs: Abnormal Lab Results - Last 24 Hours (Table) 08/15/19 08/15/19 08/16/19 Range/Units 16:47 20:07 06:55 POC Glucose (mg/dL) 108 H 125 H 150 H (75-99) mg/dL 08/16/19 Range/Units 11:38 POC Glucose (mg/dL) 235 H (75-99) mg/dL Assessment and Plan Assessment: * Acute ischemic stroke, right MCA vascular territory, involving the subcortical and periventricular white matter including the internal capsule. Possible small vessel, but the stroke appears quite large, therefore embolic stroke is definitely a possibility. * Atrial fibrillation, on long-term anticoagulation with Eliquis. Patient was also on aspirin 81 mg daily. Patient states that she has been compliant with the medication, did not miss the dose. * Diabetes, poorly controlled, hemoglobin A1c 10.7 on 07/29/2019. * Hyperlipidemia * Acute UTI with E. coli. Plan: * Continue Eliquis 2.5 mg twice a day, increase aspirin to 81 mg twice a day, as the stroke happened while being on Eliquis and aspirin 81 mg daily. * Repeat computed tomography scan of head from 08/14/2019 showed no hemorrhage, only evolving stroke in the same distribution. * 2-D echo showed atrial fibrillation, moderate concentric LVH, EF 50-55%. Left atrium is markedly dilated. Mild aortic valve sclerosis. * PT OT, speech therapy. Patient recommended honey thick liquid and pudding. She is a silent aspirator. * Keep blood pressure above 150 systolic. Avoid hypotension. Patient at risk of worsening of left hemiparesis. * Optimize control of diabetes, to target hemoglobin A1c <7.0. * Continue Lipitor 20 mg daily. * Treatment of UTI as per IM. * Patient will be a candidate for inpatient rehab.
--- NOTE | 2019-08-20 08:29 | CDI ---
Documentation Clarification Form Date: 08/20/19 From: Chante Cole Phone: If you have a question about this query, please contact Jaimie Dai, Assembly Member at [phone] between 8am and 5pm. Admit Date: 08/12/19 Discharge Date:08/16/19 Patient Name: Eliza Valero Visit Number: [id number] ATTENTION: The Clinical Documentation Specialists (CDI) and [facility] Coding Staff appreciate your assistance in clarifying documentation. Please respond to the clarification below the line at the bottom and electronically sign. The CDI & [facility] Coding staff will review the response and follow-up if needed. Please note: Queries are made part of the Legal Health Record. If you have any questions, please contact the author of this message via ITS. Dear Dr. Rushing Review of systems unobtainable due to mental status was documented in Dr. Harris's consult note. CT of the brain and CT of the head and neck document a history of altered mental status. History/Risk Factors: Acute CVA, UTI due to E.coli Clinical Indicators: Altered mental status Labs: BUN 27, Creatinine 1.14, glucose 260, X Ray: Chest: Cardiomegaly and chronic parenchymal changes with elevated right hemidiaphragm. No suspicious acute pulmonary infiltrate. CT: Brain 08/11: No acute intracranial hemorrhage or midline shift. Diffuse age related cerebral atrophy and chronic small vessel ischemic change slightly progressed from [address]: Head and Neck: No significant stenosis in common or internal carotid arteries bilaterally. No significant stenosis or aneurysmal change at the level of the [place] of [place]. Brain MRI: 08/12: Evolving significant acute right frontal parietal infarct is confirmed. 08/13: Evolution to a subacute infarct on the right in the region of the thomas radiata and basal ganglia/subinsular region. No hemorrhagic transformation. Treatment: IV Ceftriaxone, IV NS @100 mls/hr, Eliquis In your professional opinion, please clarify the etiology of the Altered Mental Status, if known. Delirium (specify cause): Dementia (if know, specify Type and if with/without Behavioral Disturbance) Encephalopathy (specify Type and Underlying Medical Illness) Other condition (please specify) Unable to determine I cannot speak from other physicians my impression is as per my note MTDD
--- NOTE | 2019-08-22 09:46 | CDI ---
Documentation Clarification Form Date: 08/22/19 From: Chante Cole Phone: If you have a question about this query, please contact Jaimie Dai, Filter Tank Operator at [phone] between 8am and 5pm. Admit Date: 08/12/19 Discharge Date:08/16/19 Patient Name: Eliza Valero Visit Number: [id number] ATTENTION: The Clinical Documentation Specialists (CDI) and [facility] Coding Staff appreciate your assistance in clarifying documentation. Please respond to the clarification below the line at the bottom and electronically sign. The CDI & [facility] Coding staff will review the response and follow-up if needed. Please note: Queries are made part of the Legal Health Record. If you have any questions, please contact the author of this message via ITS. Dear Dr. Harris Review of systems unobtainable due to mental status was documented in your consult note. CT of the brain and CT of the head and neck document a history of altered mental status. History/Risk Factors: Acute CVA, UTI due to E.coli Clinical Indicators: Altered mental status Labs: BUN 27, Creatinine 1.14, glucose 260, X Ray: Chest: Cardiomegaly and chronic parenchymal changes with elevated right hemidiaphragm. No suspicious acute pulmonary infiltrate. CT: Brain 08/11: No acute intracranial hemorrhage or midline shift. Diffuse age related cerebral atrophy and chronic small vessel ischemic change slightly progressed from [address]: Head and Neck: No significant stenosis in common or internal carotid arteries bilaterally. No signficant stenosis or aneurysmal change at the level of the [place] of [place]. Brain MRI: 08/12: Evolving significant acue right frontal parietal infarct is confirmed. 08/13: Evolution to a subacute infarct on the right in the region of the thomas radiata and basal ganglia/subinsular region. No hemorrhagic transformation. Treatment: IV Cetriaxone, IV NS @100 mls/hr, Eliquis In your professional opinion, please clarify the etiology of the Altered Mental Status, if known. Delirium (specify cause): Dementia (if know, specify Type and if with/without Behavioral Disturbance) Encephalopathy (specify Type and Underlying Medical Illness) Other condition (please specify) Unable to determine Altered mental status likely due to encephalopathy from combination of acute UTI and acute CVA MD DESTINY AvilaD
== END 2019-08-16 12:24 | DRG 65 ==
LOC: EC 17:06 → SUPCPDRO 17:06 → 3SCARD 18:31 → 4SSUR 08-15 13:19
PROVIDERS: ADMIT Family Medicine; ATTEND Family Medicine
DX: I63.411 Cerebral infarction due to embolism of right middle cerebral artery (principal); G81.04 Flaccid hemiplegia affecting left nondominant side; I48.19 Other persistent atrial fibrillation; N39.0 Urinary tract infection, site not specified; G93.49 Other encephalopathy; I27.20 Pulmonary hypertension, unspecified; I11.9 Hypertensive heart disease without heart failure; R47.1 Dysarthria and anarthria; R29.810 Facial weakness; R40.2141 Coma scale, eyes open, spontaneous, in the field [EMT or ambulance]; R40.2361 Coma scale, best motor response, obeys commands, in the field [EMT or ambulance]; R40.2251 Coma scale, best verbal response, oriented, in the field [EMT or ambulance]; R29.704 NIHSS score 4; B96.20 Unspecified Escherichia coli [E. coli] as the cause of diseases classified elsewhere; E11.65 Type 2 diabetes mellitus with hyperglycemia; E78.5 Hyperlipidemia, unspecified; F40.240 Claustrophobia; I08.3 Combined rheumatic disorders of mitral, aortic and tricuspid valves; M19.90 Unspecified osteoarthritis, unspecified site; R13.10 Dysphagia, unspecified; R47.81 Slurred speech; R26.9 Unspecified abnormalities of gait and mobility; R01.1 Cardiac murmur, unspecified; Z79.01 Long term (current) use of anticoagulants; Z79.811 Long term (current) use of aromatase inhibitors; Z79.82 Long term (current) use of aspirin; Z79.84 Long term (current) use of oral hypoglycemic drugs; Z79.899 Other long term (current) drug therapy; Z86.19 Personal history of other infectious and parasitic diseases; Z87.440 Personal history of urinary (tract) infections; Z87.442 Personal history of urinary calculi; Z87.891 Personal history of nicotine dependence; Z88.8 Allergy status to other drugs, medicaments and biological substances; Z91.030 Bee allergy status; Z85.9 Personal history of malignant neoplasm, unspecified; Z80.3 Family history of malignant neoplasm of breast
CPT/HCPCS: 36415; 70450; 70496; 70498; 70551; 71046; 74230; 80048; 80053; 80061; 81001; 82550; 82553; 84484; 85025; 85610; 85730; 87077; 87086; 87186; 93005; 93306; 99291

== ENCOUNTER 2019-11-15 18:51 | Emergency (ER) | payer MEDICARE ==
[2019-11-15 18:58] VITALS: RESP 16
--- NOTE | 2019-11-15 19:30 | ED ---
Extremity Problem HPI - General Chief complaint: Extremity Problem,Nontraumatic Stated complaint: Swollen legs Time Seen by Provider: 11/15/19 19:07 Source: patient Mode of arrival: wheelchair Limitations: no limitations - History of Present Illness Initial comments: Patient is an 79-year-old female, recent history of CVA with left-sided weakness, diabetic, A. fib on arrival class, presenting to the emergency department with increase in bilateral lower leg swelling for the past week. Patient's daughter is also here with her and is helping with history. Patient states she has always had a bilateral lower leg edema for years but patient and patient's daughter feels like it is increased in the past week. They did speak with the patient's PCP, Dr. Fitzgerald, who recommended she go into the emergency room and have bilateral lower leg ultrasounds. She denies any recent fever, chills, chest pain, shortness of breath. Patient has been doing at home therapy and is able to ambulate with the use of a cane or up right walker. She states she also has a sister that formed on her right heel as well as some mild erythema developing on the right lower leg. She has had lower leg cellulitis in the past. Patient states her sugars have been fairly well the last few days. She has no other complaints at this time. Upon arrival to the ER, her vitals a re stable. - Related Data Home Medications Medication Instructions Recorded Confirmed Anastrozole [Arimidex] 1 mg PO DAILY 05/02/16 08/12/19 Glimepiride [Amaryl] 1 mg PO DAILY 05/02/16 08/12/19 metFORMIN HCL 1,000 mg PO BID 05/02/16 08/12/19 Cranberry Fruit Extract [Cranberry] 500 mg PO DAILY 08/12/19 08/12/19 Empagliflozin [Jardiance] 25 mg PO DAILY 08/12/19 08/12/19 Green Tea [place] Extract [Green Tea 250 mg PO DAILY 08/12/19 08/12/19 Extract] Previous Rx's Medication Instructions Recorded Apixaban [Eliquis] 2.5 mg PO BID tab 08/16/19 Aspirin 81 mg PO DAILY chew 08/16/19 Atorvastatin [Lipitor] 20 mg PO DAILY tab 08/16/19 INSULIN ASPART (NovoLOG) [NovoLOG 0 unit SQ ACHS vial 08/16/19 (formulary)] Lisinopril [Zestril] 5 mg PO DAILY tab 08/16/19 Metoprolol Tartrate [Lopressor] 25 mg PO BID tab 08/16/19 Nitrofurantoin Monohyd/M-Cryst 100 mg PO Q12H 5 Days #10 cap 08/16/19 [Macrobid] Cephalexin [Keflex] 500 mg PO BID 5 Days #10 cap 11/15/19 Allergies Allergy/AdvReac Type Severity Reaction Status Date / Time venom-honey bee Allergy Swelling Verified 11/15/19 18:58 [bee venom (honey bee)] anesthesia Allergy severe Uncoded 11/15/19 18:58 muscle pain Review of Systems ROS Statement: Those systems with pertinent positive or pertinent negative responses have been documented in the HPI. ROS Other: All systems not noted in ROS Statement are negative. Past Medical History Past Medical History: Cancer, Diabetes Mellitus, Osteoarthritis (OA) Additional Past Medical History / Comment(s): "SPASTIC BOWEL", HX OF SHINGLES, Kidney stones History of Any Multi-Drug Resistant Organisms: ESBL Date of last positivie culture/infection: 04/17/19 ESBL E.coli MDRO Source:: Urine Past Surgical History: Section, Tonsillectomy Additional Past Surgical History / Comment(s): Lumpectomy left breast with lymph node removal, stent to R Ureter in 2015. Past Anesthesia/Blood Transfusion Reactions: No Reported Reaction Past Psychological History: No Psychological Hx Reported Smoking Status: Former smoker Past Alcohol Use History: None Reported Past Drug Use History: None Reported - Past Family History Mother Family Medical History: Cancer Additional Family Medical History / Comment(s): MOTHER AND GRANDMOTHER HAD BREAST CANCER General Exam - General Exam Comments Initial Comments: GENERAL: Well-appearing, well-nourished and in no acute distress. HEAD: Atraumatic, normocephalic. EYES: Pupils equal round and reactive to light, extraocular movements intact, sclera anicteric, conjunctiva are normal. ENT: TMs normal, nares patent, oropharynx clear without exudates. Moist mucous membranes. NECK: Normal range of motion, supple without lymphadenopathy or JVD. LUNGS: Breath sounds clear to auscultation bilaterally and equal. No wheezes rales or rhonchi. HEART: Irregular rate and rhythm without murmurs, rubs or gallops. ABDOMEN: Soft, nontender, normoactive bowel sounds. No guarding, no rebound. No masses appreciated. : Deferred EXTREMITIES: Patient has bilateral lower leg edema. Normal range of motion. No clubbing or cyanosis. Patient does have left-sided weakness from a recent stroke. NEUROLOGICAL: Cranial nerves II through XII grossly intact. Normal speech. PSYCH: Normal mood, normal affect. SKIN: Warm, Dry, normal turgor. She has bilateral lower leg edema as well some very mild erythema, which is more pink, developing in the right lower leg. The patient also has a blister formation on the right heel. No open sores noted. Limitations: no limitations Course Vital Signs 11/15/19 11/15/19 11/15/19 18:52 20:00 21:00 Temperature 98.8 F Pulse Rate 74 Respiratory 16 16 16 Rate Blood Pressure 134/81 O2 Sat by Pulse 97 Oximetry 11/15/19 21:26 Temperature 98.1 F Pulse Rate 69 Respiratory 16 Rate Blood Pressure 145/90 O2 Sat by Pulse 100 Oximetry Medical Decision Making - Medical Decision Making Patient is an 79-year-old female here for bilateral lower leg edema sent in by Dr. Fitzgerald to rule out DVT. Vital signs are stable. Exam is as documented. Lab work shows no acute abnormalities, glucose is slightly elevated at 200, lactic acid is normal, CRP and ESR are normal. Ultrasound of bilateral lower extremities revealed no signs of acute DVT. I discussed these findings with the patient and her daughter. Patient may be discharged home. We will give her a dose of Lasix to take home as well as started her on Keflex for mild cellulitis. She will follow up with Dr. Fitzgerald on Monday. Patient and patient's daughters agreement with this plan of care. Return parameters were discussed with them and they both verbalized understanding. Case discussed with Dr. Wheeler. - Lab Data Result diagrams: 11/15/19 19:57 11/15/19 19:57 Lab Results 11/15/19 11/15/19 11/15/19 Range/Units 19:57 19:57 19:57 WBC 5.6 (3.8-10.6) k/uL RBC 4.38 (3.80-5.40) m/uL Hgb 13.1 (11.4-16.0) gm/dL Hct 42.3 (34.0-46.0) % MCV 96.6 (80.0-100.0) fL MCH 29.8 (25.0-35.0) pg MCHC 30.8 L (31.0-37.0) g/dL RDW 14.3 (11.5-15.5) % Plt Count 248 (150-450) k/uL Neutrophils % 65 % Lymphocytes % 21 % Monocytes % 7 % Eosinophils % 5 % Basophils % 1 % Neutrophils # 3.6 (1.3-7.7) k/uL Lymphocytes # 1.2 (1.0-4.8) k/uL Monocytes # 0.4 (0-1.0) k/uL Eosinophils # 0.3 (0-0.7) k/uL Basophils # 0.0 (0-0.2) k/uL Hypochromasia Slight ESR 9 (0-20) mm/hr PT 10.5 (9.0-12.0) sec INR 1.0 (<1.2) APTT 24.6 (22.0-30.0) sec Sodium 138 (137-145) mmol/L Potassium 5.1 (3.5-5.1) mmol/L Chloride 107 (98-107) mmol/L Carbon Dioxide 23 (22-30) mmol/L Anion Gap 8 mmol/L BUN 27 H (7-17) mg/dL Creatinine 0.81 (0.52-1.04) mg/dL Est GFR (CKD-EPI)AfAm 79 (>60 ml/min/1.73 sqM) Est GFR (CKD-EPI)NonAf 69 (>60 ml/min/1.73 sqM) Glucose 199 H (74-99) mg/dL Plasma Lactic Acid Stephen (0.7-2.0) mmol/L Calcium 9.6 (8.4-10.2) mg/dL Total Bilirubin 0.9 (0.2-1.3) mg/dL AST 42 H (14-36) U/L ALT 36 H (4-34) U/L Alkaline Phosphatase 72 (38-126) U/L C-Reactive Protein <5.0 (<10.0) mg/L Total Protein 7.2 (6.3-8.2) g/dL Albumin 4.3 (3.5-5.0) g/dL 11/15/19 Range/Units 19:57 WBC (3.8-10.6) k/uL RBC (3.80-5.40) m/uL Hgb (11.4-16.0) gm/dL Hct (34.0-46.0) % MCV (80.0-100.0) fL MCH (25.0-35.0) pg MCHC (31.0-37.0) g/dL RDW (11.5-15.5) % Plt Count (150-450) k/uL Neutrophils % % Lymphocytes % % Monocytes % % Eosinophils % % Basophils % % Neutrophils # (1.3-7.7) k/uL Lymphocytes # (1.0-4.8) k/uL Monocytes # (0-1.0) k/uL Eosinophils # (0-0.7) k/uL Basophils # (0-0.2) k/uL Hypochromasia ESR (0-20) mm/hr PT (9.0-12.0) sec INR (<1.2) APTT (22.0-30.0) sec Sodium (137-145) mmol/L Potassium (3.5-5.1) mmol/L Chloride (98-107) mmol/L Carbon Dioxide (22-30) mmol/L Anion Gap mmol/L BUN (7-17) mg/dL Creatinine (0.52-1.04) mg/dL Est GFR (CKD-EPI)AfAm (>60 ml/min/1.73 sqM) Est GFR (CKD-EPI)NonAf (>60 ml/min/1.73 sqM) Glucose (74-99) mg/dL Plasma Lactic Acid Stephen 1.3 (0.7-2.0) mmol/L Calcium (8.4-10.2) mg/dL Total Bilirubin (0.2-1.3) mg/dL AST (14-36) U/L ALT (4-34) U/L Alkaline Phosphatase (38-126) U/L C-Reactive Protein (<10.0) mg/L Total Protein (6.3-8.2) g/dL Albumin (3.5-5.0) g/dL Disposition Clinical Impression: Bilateral lower extremity edema Disposition: HOME SELF-CARE Condition: Stable Instructions (If sedation given, give patient instructions): Leg Edema (ED) Additional Instructions: Please return to the Emergency Department if symptoms worsen or any other concerns. Take antibiotic as prescribed. Trial of Lasix for edema. Make sure to elevate legs above the heart a few times a day for swelling. Follow-up with PCP. Prescriptions: Cephalexin [Keflex] 500 mg PO BID 5 Days #10 cap Is patient prescribed a controlled substance at d/c from ED?: No Referrals: Augustus Fitzgerald MD [Primary Care Provider] - 1-2 days
[2019-11-15 20:14] LABS: Basophils % (A) 1 %; Eosinophils # (A) 0.3 k/uL (0-0.7); Eosinophils % (A) 5 %; HCT 42.3 % (34.0-46.0); HGB 13.1 gm/dL (11.4-16.0); Hypochromasia Slight; Lymphocytes # (A) 1.2 k/uL (1.0-4.8); Lymphocytes % (A) 21 %; MCH 29.8 pg (25.0-35.0); MCHC 30.8 g/dL (31.0-37.0); MCV 96.6 fL (80.0-100.0); Mean Platelet Volume 7.9; Monocytes # (A) 0.4 k/uL (0-1.0); Monocytes % (A) 7 %; Neutrophils # (A) 3.6 k/uL (1.3-7.7); Neutrophils % (A) 65 %; Platelet Count 248 k/uL (150-450); RBC 4.38 m/uL (3.80-5.40); RDW 14.3 % (11.5-15.5); WBC 5.6 k/uL (3.8-10.6)
[2019-11-15 20:23] LABS: ALT 36 U/L (4-34); AST 42 U/L (14-36); African American GFR (CKD) 79 (>60 ml/min/1.73 sqM); Albumin 4.3 g/dL (3.5-5.0); Alkaline Phosphatase 72 U/L (38-126); Anion Gap 8 mmol/L; Blood Urea Nitrogen 27 mg/dL (7-17); C Reactive Protein <5.0 mg/L (<10.0); Calcium 9.6 mg/dL (8.4-10.2); Carbon Dioxide 23 mmol/L (22-30); Chloride 107 mmol/L (98-107); Glucose 199 mg/dL (74-99); Non-African American GFR(CKD) 69 (>60 ml/min/1.73 sqM); Sodium 138 mmol/L (137-145); Total Bilirubin 0.9 mg/dL (0.2-1.3); Total Protein 7.2 g/dL (6.3-8.2)
[2019-11-15 20:25] LABS: Partial Thromboplastin Time 24.6 sec (22.0-30.0); Prothrombin Time 10.5 sec (9.0-12.0)
[2019-11-15 20:28] LABS: Potassium 5.1 mmol/L (3.5-5.1)
--- NOTE | 2019-11-15 20:47 | US ---
EXAMINATION TYPE: US venous doppler duplex LE BI DATE OF EXAM: 11/15/2019 8:24 PM COMPARISON: NONE CLINICAL HISTORY: swelling, pain. SIDE PERFORMED: increased bilateral LE swelling TECHNIQUE: The lower extremity deep venous system is examined utilizing real time linear array sonog tania with graded compression, doppler sonography and color-flow sonography. VESSELS IMAGED: Common Femoral Vein Deep Femoral Vein Greater Saphenous Vein * Femoral Vein Popliteal Vein Small Saphenous Vein * Proximal Calf Veins (* superficial vessels) Right Leg: Negative for DVT Left Leg: Negative for DVT Bilateral LE edema channels are noted at Popliteal Fossa and bilateral ankles. IMPRESSION: Soft tissue edema is evident. No evidence of deep vein thrombosis.
[2019-11-15 21:01] LABS: Erythrocyte Sedimentation Rate 9 mm/hr (0-20)
[2019-11-15] MEDS ORDERED: FUROSEMIDE 40 MG TAB PO STA (21:11)
[2019-11-15] MEDS ORDERED: CEPHALEXIN 500 MG CAP PO STA (21:11)
[2019-11-15 21:28] VITALS: BP 145/90; PULSE 69; TEMP 98.1
== END 2019-11-15 21:28 | disposition home or self-care (01) ==
LOC: EC 18:51
DX: R60.0 Localized edema (principal); L03.116 Cellulitis of left lower limb; L03.115 Cellulitis of right lower limb; E11.9 Type 2 diabetes mellitus without complications; I69.354 Hemiplegia and hemiparesis following cerebral infarction affecting left non-dominant side; Z79.84 Long term (current) use of oral hypoglycemic drugs; Z79.899 Other long term (current) drug therapy; Z87.891 Personal history of nicotine dependence; Z91.030 Bee allergy status; Z88.6 Allergy status to analgesic agent
CPT/HCPCS: 36415; 80053; 83605; 85025; 85610; 85652; 85730; 86140; 93970; 99284

== ENCOUNTER 2020-02-02 11:30 | Emergency (ER) | payer MEDICARE ==
[2020-02-02 11:41] VITALS: RESP 18; TEMP 97.7
[2020-02-02] MEDS ORDERED: DEXAMETHASONE SOD PHOSPHATE 10 MG/ML 1 ML VIAL IV STA (12:06)
--- NOTE | 2020-02-02 12:11 | ED ---
General Adult HPI - General Chief complaint: Allergic Reaction Stated complaint: poss allergic reaction Time Seen by Provider: 02/02/20 11:54 Source: patient Mode of arrival: ambulatory Limitations: no limitations - History of Present Illness Initial comments: Dictation was produced using [employer] dictation software. please excuse any grammatical, word or spelling errors. This patient was cared for during a federal and state declared state of [facility] secondary to Covid 19 Chief Complaint: 79-year-old female presents here for multiple complaints. History of Present Illness: His 79-year-old female she presents today for multiple complaints. Patient in July suffered a stroke with residual left- sided weakness. Over the last week patient has been suffering from itchiness of the legs. She believes that this all started from a possible spider bite to the right neck. She does not have any complaints over the right neck currently at this time. She since then has been having itching of her legs every night. She's been taking Benadryl at home which has been slightly treating her symptoms. Yesterday she had food that was well off of what her usual diabetic regimen is. They realize after the fact that cayenne pepper was in the ingredients. They believe that patient was having a reaction to food that she ate. At that time she reports that she had some mild lip swelling, itching to her legs. Morning she woke with a mild headache. Patient has history of headaches. She states the headache today similar to her usual. Currently she feels fairly asymptomatic. She does not have any leg symptoms. She has her oldest son at bedside who reports that patient has a normal voice. She is around her baseline. They're worried that perhaps patient's condition is downsloping and brought her for medical evaluation. The ROS documented in this emergency department record has been reviewed and confirmed by me. Those systems with pertinent positive or negative responses have been documented in the HPI. All other systems are other negative and/or noncontributory. PHYSICAL EXAM: General Impression: Alert and oriented x3, not in acute distress HEENT: Normocephalic atraumatic, extra-ocular movements intact, pupils equal and reactive to light bilaterally, mucous membranes moist, no hot potato voice Cardiovascular: Heart regular rate and rhythm Chest: Able to complete full sentences, no retractions, no tachypnea Abdomen: abdomen soft, non-tender, non-distended, no organomegaly Musculoskeletal: Pulses present and equal in all extremities, no peripheral edema Motor: no focal deficits noted Neurological: CN II-XII grossly intact, no new focal motor or sensory deficits noted, negative Brudzinski's, negative Kernig's Skin: Intact with no visualized rashes Psych: Normal affect and mood ED course: 79-year-old female with multiple complaints. Vital signs upon arrival are show heart rate 114, rest of vital signs within acceptable limits. When asked to prioritize all her complaints. She states her main complaint is daily itching of the legs, then ALLERGY symptoms, then weakness than headache. Physical examination is benign she is well-appearing. She does not have any high risk features.Laboratory evaluation obtained. CBC is unremarkable. Metabolic panel shows BUN of 35. Rest of labs are grossly unremarkable. PO2 creatinine ratio is elevated. This is concerning for dehydration. EKG was obtained showing atrial fibrillation. Patient has history of atrial fibrillation she does take eliquis and metoprolol. Patient given 1 dose of Decadron for concerns of immune reaction causing itchiness. Patient given a 500 mL bolus of fluids. Disposition options were discussed with patient and slick montague's family member. She does have good support system at home. Advised follow- up with primary care physician upon discharge. EKG interpretation: Ventricular rate 65, A. fib, QRS 70, QTc 451. No ND p rolongation, no QTC prolongation, no ST or T-wave changes noted. EKG compared to 08/12/2019 showing no changes. Overall, this EKG is unremarkable - Related Data Home Medications Medication Instructions Recorded Confirmed Anastrozole [Arimidex] 1 mg PO DAILY 05/02/16 08/12/19 Glimepiride [Amaryl] 1 mg PO DAILY 05/02/16 08/12/19 metFORMIN HCL 1,000 mg PO BID 05/02/16 08/12/19 Cranberry Fruit Extract [Cranberry] 500 mg PO DAILY 08/12/19 08/12/19 Empagliflozin [Jardiance] 25 mg PO DAILY 08/12/19 08/12/19 Green Tea [place] Extract [Green Tea 250 mg PO DAILY 08/12/19 08/12/19 Extract] Previous Rx's Medication Instructions Recorded Apixaban [Eliquis] 2.5 mg PO BID tab 08/16/19 Aspirin 81 mg PO DAILY chew 08/16/19 Atorvastatin [Lipitor] 20 mg PO DAILY tab 08/16/19 INSULIN ASPART (NovoLOG) [NovoLOG 0 unit SQ ACHS vial 08/16/19 (formulary)] Metoprolol Tartrate [Lopressor] 25 mg PO BID tab 08/16/19 Nitrofurantoin Monohyd/M-Cryst 100 mg PO Q12H 5 Days #10 cap 08/16/19 [Macrobid] lisinopriL [Zestril] 5 mg PO DAILY tab 08/16/19 Cephalexin [Keflex] 500 mg PO BID 5 Days #10 cap 11/15/19 Allergies Allergy/AdvReac Type Severity Reaction Status Date / Time venom-honey bee Allergy Swelling Verified 02/02/20 11:36 [bee venom (honey bee)] anesthesia Allergy severe Uncoded 11/15/19 18:58 muscle pain Review of Systems ROS Statement: Those systems with pertinent positive or pertinent negative responses have been documented in the HPI. ROS Other: All systems not noted in ROS Statement are negative. Past Medical History Past Medical History: Cancer, CVA/TIA, Diabetes Mellitus, Osteoarthritis (OA) Additional Past Medical History / Comment(s): "SPASTIC BOWEL", HX OF SHINGLES, Kidney stones, IBS History of Any Multi-Drug Resistant Organisms: ESBL Date of last positivie culture/infection: 04/17/19 ESBL E.coli MDRO Source:: Urine Past Surgical History: Section, Tonsillectomy Additional Past Surgical History / Comment(s): Lumpectomy left breast with lymph node removal, stent to R Ureter in 2015. Past Anesthesia/Blood Transfusion Reactions: No Reported Reaction Past Psychological History: No Psychological Hx Reported Smoking Status: Former smoker Past Alcohol Use History: None Reported Past Drug Use History: None Reported - Past Family History Mother Family Medical History: Cancer Additional Family Medical History / Comment(s): MOTHER AND GRANDMOTHER HAD BREAST CANCER General Exam Limitations: no limitations Course Vital Signs 02/02/20 11:36 Temperature 97.7 F Pulse Rate 114 H Respiratory 18 Rate Blood Pressure 121/73 O2 Sat by Pulse 99 Oximetry Medical Decision Making - Lab Data Result diagrams: 02/02/20 12:10 02/02/20 12:10 Lab Results 02/02/20 02/02/20 Range/Units 12:10 12:10 WBC 5.4 (3.8-10.6) k/uL RBC 4.74 (3.80-5.40) m/uL Hgb 13.9 (11.4-16.0) gm/dL Hct 44.3 (34.0-46.0) % MCV 93.4 (80.0-100.0) fL MCH 29.3 (25.0-35.0) pg MCHC 31.4 (31.0-37.0) g/dL RDW 13.4 (11.5-15.5) % Plt Count 195 (150-450) k/uL Neutrophils % 69 % Lymphocytes % 18 % Monocytes % 8 % Eosinophils % 3 % Basophils % 1 % Neutrophils # 3.8 (1.3-7.7) k/uL Lymphocytes # 1.0 (1.0-4.8) k/uL Monocytes # 0.4 (0-1.0) k/uL Eosinophils # 0.2 (0-0.7) k/uL Basophils # 0.0 (0-0.2) k/uL Sodium 140 (137-145) mmol/L Potassium 4.6 (3.5-5.1) mmol/L Chloride 106 (98-107) mmol/L Carbon Dioxide 28 (22-30) mmol/L Anion Gap 6 mmol/L BUN 35 H (7-17) mg/dL Creatinine 1.03 (0.52-1.04) mg/dL Est GFR (CKD-EPI)AfAm 59 (>60 ml/min/1.73 sqM) Est GFR (CKD-EPI)NonAf 51 (>60 ml/min/1.73 sqM) Glucose 185 H (74-99) mg/dL Calcium 9.5 (8.4-10.2) mg/dL Magnesium 1.6 (1.6-2.3) mg/dL Total Bilirubin 0.7 (0.2-1.3) mg/dL AST 31 (14-36) U/L ALT 31 (4-34) U/L Alkaline Phosphatase 60 (38-126) U/L Total Protein 6.2 L (6.3-8.2) g/dL Albumin 3.8 (3.5-5.0) g/dL Disposition Clinical Impression: Weakness Disposition: HOME SELF-CARE Condition: Good Instructions (If sedation given, give patient instructions): Food Allergy (ED), Dehydration (ED) Is patient prescribed a controlled substance at d/c from ED?: No Referrals: Augustus Fitzgerald MD [Primary Care Provider] - 1-2 days Time of Disposition: 13:20
[2020-02-02 12:36] LABS: Basophils % (A) 1 %; Eosinophils # (A) 0.2 k/uL (0-0.7); Eosinophils % (A) 3 %; HCT 44.3 % (34.0-46.0); HGB 13.9 gm/dL (11.4-16.0); Lymphocytes % (A) 18 %; MCH 29.3 pg (25.0-35.0); MCHC 31.4 g/dL (31.0-37.0); MCV 93.4 fL (80.0-100.0); Mean Platelet Volume 7.9; Monocytes # (A) 0.4 k/uL (0-1.0); Monocytes % (A) 8 %; Neutrophils # (A) 3.8 k/uL (1.3-7.7); Neutrophils % (A) 69 %; Platelet Count 195 k/uL (150-450); RBC 4.74 m/uL (3.80-5.40); RDW 13.4 % (11.5-15.5); WBC 5.4 k/uL (3.8-10.6)
[2020-02-02 12:39] LABS: Albumin 3.8 g/dL (3.5-5.0); Calcium 9.5 mg/dL (8.4-10.2); Magnesium 1.6 mg/dL (1.6-2.3); Potassium 4.6 mmol/L (3.5-5.1); Total Bilirubin 0.7 mg/dL (0.2-1.3); Total Protein 6.2 g/dL (6.3-8.2)
[2020-02-02] MEDS ORDERED: SODIUM CHLORIDE 0.9% 1,000 ML IV STA (12:45)
[2020-02-02] MEDS ORDERED: SODIUM CHLORIDE 0.9% 500 ML 500 ML IV STA (12:50)
[2020-02-02 13:29] VITALS: BP 145/83; PULSE 89
== END 2020-02-02 13:29 | disposition home or self-care (01) ==
LOC: EC 11:30
DX: R53.1 Weakness (principal); R51 Headache; L29.9 Pruritus, unspecified; R79.89 Other specified abnormal findings of blood chemistry; I48.91 Unspecified atrial fibrillation; E11.9 Type 2 diabetes mellitus without complications; Z79.899 Other long term (current) drug therapy; Z79.84 Long term (current) use of oral hypoglycemic drugs; Z91.030 Bee allergy status; Z88.4 Allergy status to anesthetic agent; Z86.73 Personal history of transient ischemic attack (TIA), and cerebral infarction without residual deficits; Z87.891 Personal history of nicotine dependence
CPT/HCPCS: 93005; 80053; 83735; 85025; 99283; 96374; J1100

== ENCOUNTER → 2020-06-03 | Outpatient (CLI) | payer MEDICARE ==
--- NOTE | 2020-06-04 09:34 | MM ---
Reason for exam: additional evaluation requested from prior study. Last mammogram was performed 1 year and 3 months ago. History: Patient is postmenopausal and has history of breast cancer at age 75. Family history of breast cancer in mother and breast cancer in grandmother. Benign MG pre op needle loc LT of the left breast, June 23, 2015. Malignant stereotactic core biopsy, May 2015. Benign US biopsy breast VAD LT of the left breast, September 25, 2014. Taking antineoplastic for 5 years beginning at age 75. Physical Findings: Nurse did not find any significant physical abnormalities on exam. MG Diagnostic Mammo w CAD BENNY Bilateral CC and MLO view(s) were taken. Prior study comparison: February 20, 2019, bilateral MG 3d diag mammo w/cad BENNY. February 02, 2018, bilateral MG 3d diag mammo w/cad BENNY. July 31, 2017, left breast MG 3d diag mammo w/cad LT. January 25, 2017, bilateral MG 3d diag mammo w/cad BENNY. The breast tissue is heterogeneously dense. This may lower the sensitivity of mammography. Post surgical and post therapy change left breast. Diffuse skin and trabecular thickening redemonstrated. No significant new findings when compared with previous films. These results were verbally communicated with the patient and result sheet given to the patient on 06/03/20. ASSESSMENT: Incomplete: need additional imaging evaluation, BI-RAD 0 RECOMMENDATION: Ultrasound of the left breast.
--- NOTE | 2020-06-04 09:38 | USB ---
Reason for exam: additional evaluation requested from abnormal screening. History: Patient is postmenopausal and has history of breast cancer at age 75. Family history of breast cancer in mother and breast cancer in grandmother. Benign MG pre op needle loc LT of the left breast, June 23, 2015. Malignant stereotactic core biopsy, May 2015. Benign US biopsy breast VAD LT of the left breast, September 25, 2014. Taking antineoplastic for 5 years beginning at age 75. US Breast LT Technologist: Mary Baez Left complete breast ultrasound includes all four quadrants, the retroareolar region and axilla. Finding demonstrates skin thickening, anterior edema channels, greater degree of edema and thickening at the palpable 3-4 o'clock position and a 0.6 x 0.3 x 0.2cm vertically oriented shadowing suspicious lesion at 7 o'clock. These results were verbally communicated with the patient and result sheet given to the patient on 06/03/20. ASSESSMENT: Highly suggestive of malignancy, BI-RAD 5 RECOMMENDATION: Surgical consultation and ultrasound core biopsy of the left breast. Manage patient on a clinical basis. Correlate clinically as to the reasonn of the patient's diffuse skin thickening. Called Dr. Tirado's office with mammographic findings and has scheduled an appointment for the patient for 06/25/20 at 12:[address] Lee. Biopsy scheduled for 06/15/20 at 1:00. PRELIMINARY REPORT CALLED AND FAXED TO DR. LEE ON 06/04/20.
== END | disposition home or self-care (01) ==
LOC: RADMAMWWP 10:28
PROVIDERS: ATTEND Internal Medicine Hematology & Oncology
DX: R92.8 Other abnormal and inconclusive findings on diagnostic imaging of breast (principal); Z85.3 Personal history of malignant neoplasm of breast
CPT/HCPCS: 77066

== ENCOUNTER → 2020-06-25 | Outpatient (CLI) | payer MEDICARE ==
[2020-06-25 12:24] VITALS: BP 154/75; PULSE 61; RESP 18; TEMP 98.2
--- NOTE | 2020-06-25 13:20 | P.GSHP ---
History of Present Illness H&P Date: 06/25/20 Chief Complaint: left breast cancer Eliza is an 80 year old female seen in consultation for Dr. Augustus Fitzgerald regarding stage1 left breast cancer. The patient on 57 underwent a left ultrasound core biopsy which was positive for fat necrosis. She on 1416 on the left breast mammogram was noted to have a 6 mm spiculated irregular mass in the upper inner quadrant. An ultrasound revealed a 3 mm oval cystic lesion at 11:00 that was previously biopsied and a 4 mm oval solid lesion at 10:00. Left breast core biopsy done on revealed invasive ductal carcinoma ER/[place] positive HER-2/joselyn negative. She underwent a left breast lumpectomy and sentinel node biopsy and . Pathology revealed questionable small minute focus of residual cancer with the biopsy cavity and the specimen. All margins were negative. 2 lymph nodes were negative for metastatic cancer. The patient did not have any chemotherapy or radiation therapy. She was given a prescription for anastrozole which she stopped approximately one year ago. Her last bilateral mammogram was done here on 06-03-20. The breast tissue was noted to be heterogeneously dense. It was felt that this may lower the sensitivity of mammography. Postsurgical therapy in the left breast was noted. Diffuse skin and trabecular thickening was demonstrated. No significant new findings however an ultrasound of the left breast was recommended. Nothing of concern was noted in the right breast. On the left breast ultrasound findings demonstrated a skin thickening, anterior edema and a palpable thickening at the 3 to 4 o'clock position and a 0.6 x 0.3 x 0.2 cm vertically oriented shadowing suspicious lesion at 7:00. This was felt to be of concern and a surgical consult and core biopsy was recommended. The patient states that this is not at the same setting as her last tumor and she does not feel anything of concern in her breasts. The patient has noted some skin changes for about one month. She has otherwise not noted any lumps or masses in her breast. No nipple discharge. No pain in her breast. Her last prior bilateral mammogram was in February 2019 and was benign BIRADS 2. She had a stroke August 11 last year and has not seen anyone about her breast since that time. Family History: mother: of breast cancer maternal grandmother: of breast cancer great grandmother: of breast cancer brother: lung cancer smoker Hormonal History: menarche: 11 , 2 miscarriages, breast fed: yes, age at first : 20 menopause: 43 BCP: 6 months Surgical history: Left breast lumpectomy and sentinel node biopsy Medical history: CVA: little use of left arm therapy to walk, weak left leg IBS type 2 DM neuro burning A-fib CVA Patient has been on Macrobid daily for months secondary to frequent bladder infections if she were to stop this Social History: smoke: stopped 30 years ago, used to smoke 1/PPD for 5 years alcohol: occasional drugs: none - Constitutional Constitutional: Denies chills, Denies fever - EENT Comment: wears glasses Ears: bilateral: decreased hearing, deny: tinnitus Ears, nose, mouth and throat: Denies headache, Denies sore throat - Breasts Breasts: bilateral: as per HPI - Cardiovascular Cardiovascular: Denies chest pain, Denies shortness of breath - Respiratory Respiratory: Denies cough, Denies 7 - Gastrointestinal Comment: IBS - Genitourinary (Female) Genitourinary: Denies dysuria, Denies hematuria - Menstruation Menstruation: Reports postmenopausal - Musculoskeletal Comment: CVA left side week, arthritis in hands - Integumentary Integumentary: Reports as per HPI - Neurological Comment: CVA - Psychiatric Psychiatric: Reports anxiety - Endocrine Comment: DM - Hematologic/Lymphatic Comment: A-Fib, takes eliquis - Allergic/Immunologic Comment: food, spices Allergic/Immunologic: Reports as per HPI, Reports seasonal allergies Past Medical History Past Medical History: Cancer, CVA/TIA, Diabetes Mellitus, Osteoarthritis (OA) Additional Past Medical History / Comment(s): "SPASTIC BOWEL", HX OF SHINGLES, Kidney stones, IBS History of Any Multi-Drug Resistant Organisms: ESBL Date of last positivie culture/infection: 04/17/19 ESBL E.coli MDRO Source:: Urine Past Surgical History: Section, Tonsillectomy Additional Past Surgical History / Comment(s): Lumpectomy left breast with lymph node removal, stent to R Ureter in 2015. Past Anesthesia/Blood Transfusion Reactions: No Reported Reaction Past Psychological History: No Psychological Hx Reported Smoking Status: Former smoker Past Alcohol Use History: None Reported Past Drug Use History: None Reported - Past Family History Mother Family Medical History: Cancer Additional Family Medical History / Comment(s): MOTHER AND GRANDMOTHER HAD BREAST CANCER Medications and Allergies Home Medications Medication Instructions Recorded Confirmed Type Anastrozole [Arimidex] 1 mg PO DAILY 05/02/16 08/12/19 History Glimepiride [Amaryl] 1 mg PO DAILY 05/02/16 08/12/19 History metFORMIN HCL 1,000 mg PO BID 05/02/16 08/12/19 History Cranberry Fruit Extract [Cranberry] 500 mg PO DAILY 08/12/19 08/12/19 History Empagliflozin [Jardiance] 25 mg PO DAILY 08/12/19 08/12/19 History Green Tea Hayden Extract [Green Tea 250 mg PO DAILY 08/12/19 08/12/19 History Extract] Apixaban [Eliquis] 2.5 mg PO BID tab 08/16/19 Rx Aspirin 81 mg PO DAILY chew 08/16/19 Rx Atorvastatin [Lipitor] 20 mg PO DAILY tab 08/16/19 Rx INSULIN ASPART (NovoLOG) [NovoLOG 0 unit SQ ACHS vial 08/16/19 Rx (formulary)] Metoprolol Tartrate [Lopressor] 25 mg PO BID tab 08/16/19 Rx Nitrofurantoin Monohyd/M-Cryst 100 mg PO Q12H 5 Days #10 cap 08/16/19 08/12/19 Rx [Macrobid] lisinopriL [Zestril] 5 mg PO DAILY tab 08/16/19 Rx Cephalexin [Keflex] 500 mg PO BID 5 Days #10 cap 11/15/19 Rx Allergies Allergy/AdvReac Type Severity Reaction Status Date / Time venom-honey bee Allergy Swelling Verified 06/25/20 12:15 [bee venom (honey bee)] anesthesia Allergy severe Uncoded 06/25/20 12:15 muscle pain Surgical - Exam BMI 24.9 - General in wheel chair, cooperative - Eyes normal ocular movement - ENT normal nares - Neck trachea midline - Respiratory normal expansion, normal respiratory effort - Cardiovascular Heart Sounds: normal: S1, S2 - Abdomen Abdomen: soft, bowel sounds - Integumentary thickening of skin left breast at the periaerolar position at 5 OClock - Neurologic wheel chair bound - Musculoskeletal in a wheel chair - Psychiatric oriented to time, oriented to person, oriented to place, speech is normal breast exam: BRA: 36D inspection: grade 3 ptosis, Skin changes under her left breast may be consistent with fungal infection palpation: Right breast: Multiple positional exam fibrocystic changes, no dominant masses or nodules of concern Right axilla: No adenopathy of concern Left breast: Fungal infection under her left breast, multiple positional exam well-healed scar from prior lumpectomy changes of scar at that site, at approximately the 7 o'clock position there is some fullness with some skin thickening can corresponding with that which is seen on ultrasound Results Mammogram and ultrasound results reviewed with radiology Assessment and Plan Assessment: Impression: 1. Patient status post left breast stage I invasive ductal carcinoma in 2016, Margins negative, sentinel node negative, patient was on anastrozole until approximately a year ago 2. New 7:00 lesion in the left breast BIRADS 5 recommended patient undergo ultrasound-guided core biopsy 3. Status post CVA 4. Atrial fibrillation on eliquis 5. type 2 DM 6. food allergies 7. Fungal infection under breast Plan: 1. Ultrasound core biopsy lesion left breast 2. Must find out from cardiology the patient may stop the eliquis 3. Medical management medical conditions 4. nystatin under breast Cc: Dr. Augustus Fitzgerald I have had a long discussion with the patient her [id number] and daughter regarding the radiographic findings in the left breast. The radiographic findings correspond to his physical findings as well as the 7 o'clock position. These do not appear to be in the same location as the prior breast cancer. We have strongly recommended an ultrasound core biopsy. We have discussed the risks which include bleeding, infection, reaction to the anesthetic. We also discussed the risks that if the biopsy is discordant it could require open biopsy in the operating room. The patient understands that it would be necessary to stop her blood thinner and the risks associated with that. Encounter 50 minutes, time spent in reviewing medical records, physical examination, and counselling.
== END | disposition home or self-care (01) ==
LOC: WWCWWP 12:01
PROVIDERS: ATTEND Surgery
DX: Z53.9 Procedure and treatment not carried out, unspecified reason (principal)

== ENCOUNTER → 2020-07-13 | Day surgery (SDC) | payer MEDICARE ==
[2020-07-13 12:28] VITALS: RESP 16; TEMP 98.1
[2020-07-13 14:27] VITALS: BP 110/64; PULSE 65
--- NOTE | 2020-07-13 15:47 | USB ---
EXAMINATION TYPE: US biopsy breast VAD LT DATE OF EXAM: 07/13/2020 CLINICAL HISTORY: R92.8 Abnormal Mammogram. Abnormal ultrasound TECHNIQUE: Ultrasound guided vaccuum assisted core biopsy of left breast 7:00 position. COMPARISON: 06/03/2020 ultrasound left breast FINDINGS: The ultrasound guided core biopsy procedure was explained to the patient. The risks, benefits, alternatives were discussed. An informed consent was then obtained. Timeout was performed. The patient was placed in supine positioning for imaging and for the procedure. The overlying skin was prepped with betadine and sterilely draped in usual sterile fashion. Lidocaine 1% was used as anesthetic into the skin and deeper breast tissue up to area of concern in the breast. A small skin dean was made with surgical scalpel. Under ultrasound guidance, a 12-gauge vacuum assisted biopsy device was used to obtain 3 core samples. The localized ultrasound lesion appeared to be completely excised. A biopsy clip was left in lesion. A wing clip was placed. Under ultrasound, this was placed at the biopsy site. Good hemostasis was obtained with direct pressure. Discharge instructions were discussed with the patient. The patient will follow up with the referring physician for results. Postprocedure mammogram: The patient was transferred to mammography for physician ordered post procedure mammogram for clip placement verification. The clip is in the expected region of the biopsy. The patient tolerated the procedure well without any immediate complication. The patient was discharged to home in stable condition. IMPRESSION: 1. Successful ultrasound guided biopsy left breast. Recommendations: 1. Recommendations are pending pathology results. Pathology Results: Malignant LEFT BREAST, 7:00 POSITION, CORE BIOPSY: Invasive ductal carcinoma, Grade 1 (see Surgical Pathology Cancer Case Summary and comment). Recommendation Surgical consult of the left breast. JEN
--- NOTE | 2020-07-14 07:32 | MM ---
Reason for exam: additional evaluation requested from abnormal screening. Last mammogram was performed 1 month ago. History: Patient is postmenopausal and has history of breast cancer at age 75. Family history of breast cancer in mother and breast cancer in grandmother. Benign MG pre op needle loc LT of the left breast, June 23, 2015. Malignant stereotactic core biopsy, May 2015. Benign US biopsy breast VAD LT of the left breast, September 25, 2014. Taking antineoplastic for 5 years beginning at age 75. MG Diagnostic Mammo LT Wo CAD CC and LM view(s) were taken of the left breast. Prior study comparison: June 03, 2020, bilateral MG diagnostic mammo w CAD BENNY. February 20, 2019, bilateral MG 3d diag mammo w/cad BENNY. ASSESSMENT: Post procedure mammogram for marker placement RECOMMENDATION: Surgical consult of the left breast. JEN
== END ==
LOC: RADUSWWP 12:08
PROVIDERS: ATTEND Surgery
DX: C50.912 Malignant neoplasm of unspecified site of left female breast (principal); Z17.0 Estrogen receptor positive status [ER+]; Z85.3 Personal history of malignant neoplasm of breast; Z80.3 Family history of malignant neoplasm of breast; Z88.4 Allergy status to anesthetic agent; Z91.030 Bee allergy status
CPT/HCPCS: 88305; 88342; 88341; 77065; 19083; A4648; J2001

== ENCOUNTER → 2020-07-24 | Outpatient (CLI) | payer MEDICARE ==
[2020-07-24 14:32] VITALS: BP 146/84; PULSE 80; RESP 20; TEMP 97.5
--- NOTE | 2020-07-24 14:52 | P.PN ---
Progress Note - Text Progress Note Date: 07/24/20 Eliza is an 80-year-old white female status post ultrasound core biopsy of an area of concern in the left breast. Pathology revealed invasive carcinoma which was grade 1 ER +, Pr+, HER-2 negative. This is believed to be a a stage IA lesion. She had a prior left breast invasive ductal carcinoma diagnosed in 2015. This was for a lesion in the upper inner breast. This appears to be a second breast primary. On the left breast mammogram and ultrasound and May 2020 she was noted to have a 0.6 x 0.3 cm lesion at 7:00. The patient has multiple medical comorbidities. Not wish any surgical intervention if possible nor does the family. I suggested that she may be a candidate for hormone therapy and she is being scheduled for appointment with medical oncology. Physical exam: Patient wheelchair bound Examination of the right breast reveals thickening of the skin at the 7 o'clock position with some fullness at this site, no evidence of ecchymosis, infection or hematoma Impression/Plan: 1. 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 Patient is not felt to be a good surgical candidate secondary to multiple medical comorbidities 3. Recommend appointment with medical oncology for possible hormonal therapy 4. Presentation of case at tumor board 5. Follow-up left breast ultrasound in 4 months with appointment here Cc: Dr. Augustus Fitzgerald Encounter 20 minutes, time spent reviewing records, examining patient and counselling.
== END ==
LOC: WWCWWP 13:48
PROVIDERS: ATTEND Surgery
DX: C50.912 Malignant neoplasm of unspecified site of left female breast (principal); Z17.0 Estrogen receptor positive status [ER+]

== ENCOUNTER → 2020-08-21 | Outpatient (CLI) | payer MEDICARE | END | disposition home or self-care (01) | LOC: LABWHC1 13:06 | PROVIDERS: ATTEND Family Medicine | DX: Z20.822 Contact with and (suspected) exposure to COVID-19 (principal) | CPT/HCPCS: U0003; C9803; U0005 ==

== ENCOUNTER → 2020-11-12 | Outpatient (CLI) | payer MEDICARE ==
--- NOTE | 2020-11-12 16:08 | USB ---
EXAMINATION TYPE: US breast limited LT DATE OF EXAM: 11/12/2020 COMPARISON: 07/13/2020, 06/03/2020 CLINICAL HISTORY: Z85.3, History of breast cancer. Targeted left breast ultrasound was performed. There is a 0.3 x 0.4 x 0.3 cm irregular hypoechoic mas s in the left breast at 7:00 which is consistent with the known malignancy and not significantly emerson ged. IMPRESSION: No significant change in the left breast irregular hypoechoic mass which was previously biopsied with malignant results. BI-RADS 6, no malignancy. Recommendation: Follow-up prior surgical recommendations.
== END | disposition home or self-care (01) ==
LOC: RADUSWWP 14:59
PROVIDERS: ATTEND Surgery
DX: N63.20 Unspecified lump in the left breast, unspecified quadrant (principal); Z85.3 Personal history of malignant neoplasm of breast

== ENCOUNTER → 2020-11-27 | Outpatient (CLI) | payer MEDICARE ==
[2020-11-27 15:44] VITALS: BP 168/81; PULSE 71; RESP 18; TEMP 97.9
--- NOTE | 2020-11-27 16:04 | P.PN ---
Subjective Progress Note Date: 11/27/20 Principal diagnosis: left breast exam Eliza is an 80 year old female seen in consultation for Dr. Augustus Fitzgerald regarding stage1 left breast cancer. The patient on 5715 underwent a left ultrasound core biopsy which was positive for fat necrosis. She on 1416 on the left breast mammogram was noted to have a 6 mm spiculated irregular mass in the upper inner quadrant. An ultrasound revealed a 3 mm oval cystic lesion at 11:00 that was previously biopsied and a 4 mm oval solid lesion at 10:00. Left breast core biopsy done on revealed invasive ductal carcinoma ER/[place] positive HER-2/joselyn negative. She underwent a left breast lumpectomy and sentinel node biopsy and . Pathology revealed questionable small minute focus of residual cancer with the biopsy cavity and the specimen. All margins were negative. 2 lymph nodes were negative for metastatic cancer. The patient did not have any chemotherapy or radiation therapy. She was given a prescription for anastrozole which she stopped approximately one year ago. Her last bilateral mammogram was done here on 06-03-20. The breast tissue was noted to be heterogeneously dense. It was felt that this may lower the sensitivity of mammography. Postsurgical therapy in the left breast was noted. Diffuse skin and trabecular thickening was demonstrated. No significant new findings however an ultrasound of the left breast was recommended. Nothing of concern was noted in the right breast. On the left breast ultrasound findings demonstrated a skin thickening, anterior edema and a palpable thickening at the 3 to 4 o'clock position and a 0.6 x 0.3 x 0.2 cm vertically oriented shadowing suspicious lesion at 7:00. This was felt to be of concern and a surgical consult and core biopsy was recommended. The patient states that this is not at the same setting as her last tumor and she does not feel anything of concern in her breasts. The patient had noted some skin changes for about one month prior to her visit in June 2020. She has otherwise not noted any lumps or masses in her breast. No nipple discharge. No pain in her breast. She subsequently underwent ultrasound guided core biopsy at the area of concern. Pathology revealed invasive carcinoma which is grade 1 ER/KY positive HER-2/joselyn negative. This was believed to be stage IA. This was felt to be a second breast primary. After discussion with the family in the patient's medical multiple comorbidities they did not wish any surgical intervention if possible. The patient therefore was seen by medical oncology and treated with hormonal therapy. She is being treated with exemestane. She is tolerating this without difficulty. Note from Dr. Candida bautista from 11-18-20. Patient had a ultrasound performed of the left breast on November 12, 2020. There was noted to be 0.3 by 0.4 centimeter irregular mass in the left breast 6 to 7:00 which was consistent with no malignancy and not felt to have significantly changed. Prior this was 0.6 by 0.3 on June 03, 2020. Her left breast dx mammogram was on 07-13-20. She had a right breast mammogram in June 03, 2020. She is not complaining of any new lumps masses or nodules in the left breast. She does describe some shooting pains in that breast. She does not know what causes these. This occurs only in the evening and has started recently. It occurs daily. She had a stroke August 11 last year and has not seen anyone about her breast since that time. Family History: mother: of breast cancer maternal grandmother: of breast cancer great grandmother: of breast cancer brother: lung cancer smoker Hormonal History: menarche: 11 , 2 miscarriages, breast fed: yes, age at first : 20 menopause: 43 BCP: 6 months Surgical history: Left breast lumpectomy and sentinel node biopsy Medical history: CVA: little use of left arm therapy to walk, weak left leg IBS type 2 DM neuro burning A-fib CVA Patient has been on Macrobid daily for months secondary to frequent bladder infections if she were to stop this Social History: smoke: stopped 30 years ago, used to smoke 1/PPD for 5 years alcohol: occasional drugs: none - Constitutional Constitutional: Denies chills, Denies fever - EENT Comment: wears glasses Ears: bilateral: decreased hearing, deny: tinnitus Ears, nose, mouth and throat: Denies headache, Denies sore throat - Breasts Breasts: bilateral: as per HPI - Cardiovascular Cardiovascular: Denies chest pain, Denies shortness of breath - Respiratory Respiratory: Denies cough - Gastrointestinal Comment: IBS - Genitourinary (Female) Genitourinary: Denies dysuria, Denies hematuria - Menstruation Menstruation: Reports postmenopausal - Musculoskeletal Comment: CVA left side week, arthritis in hands - Integumentary Integumentary: Reports as per HPI - Neurological Comment: CVA - Psychiatric Psychiatric: Reports anxiety - Endocrine Comment: DM - Hematologic/Lymphatic Comment: A-Fib, takes eliquis - Allergic/Immunologic Comment: food, spices Allergic/Immunologic: Reports as per HPI, Reports seasonal allergies Objective - Exam BMI 23.6 - Constitutional General appearance: Present: cooperative - Respiratory Respiratory: bilateral: CTA - Cardiovascular Heart sounds: normal: S1, S2 - Integumentary Integumentary Comment(s): Postsurgical scarring and radiation changes left breast - Musculoskeletal Musculoskeletal Comment(s): Patient using an upright walker - Psychiatric Psychiatric: Present: A&O x's 3, appropriate affect, intact judgment & insight - Additional findings Additional findings: Breast examination: BRA: 36D Inspection: Grade 3 ptosis bilateral, skin changes related to left breast lumpectomy and radiation Palpation: Right breast: fibrocystic changes no dominant masses or nodules of concern Right axilla: No adenopathy of concern Left breast: Post surgical and radiation changes, patient examined for sitting in chair the area of prior nodularity appears to have decreased in size Assessment and Plan Assessment: Impression: CVA: little use of left arm therapy to walk, weak left leg; using a stand uip walker IBS type 2 DM neuro burning A-fib CVA Patient has been on Macrobid daily for months secondary to frequent bladder infections Prior left breast invasive ductal carcinoma in 2016, margins were negative, sentinel node negative, patient was on anastrozole until approximately a year prior to knee breast cancer diagnosed in the left breast 07-14-20. She is being treated conservatively with exemestane in conjunction with Dr. Tirado The area of concern in the left breast appears to have decreased in size. Patient does complain of some breast discomfort which is new over the past several months Plan: 1. Continue present care 2. Can follow up with Dr. Tirado 3. Follow-up in 4 months 5. If pain becomes more persistent than patient should call sooner 6. bilateral mammogram in 1 year/ repeat ultrasound of the left breast Cc: Dr. Augustus Fitzgerald
== END ==
LOC: WWCWWP 15:32
PROVIDERS: ATTEND Surgery
DX: N64.4 Mastodynia (principal); K58.9 Irritable bowel syndrome, unspecified; E11.9 Type 2 diabetes mellitus without complications; I48.91 Unspecified atrial fibrillation; M79.2 Neuralgia and neuritis, unspecified; Z86.73 Personal history of transient ischemic attack (TIA), and cerebral infarction without residual deficits; Z87.891 Personal history of nicotine dependence; Z85.3 Personal history of malignant neoplasm of breast; Z91.030 Bee allergy status; Z88.4 Allergy status to anesthetic agent; Z79.84 Long term (current) use of oral hypoglycemic drugs; Z79.899 Other long term (current) drug therapy

== ENCOUNTER → 2021-06-10 | Outpatient (CLI) | payer MEDICARE ==
[2021-06-10 11:27] VITALS: BP 150/78; PULSE 88; RESP 16; TEMP 98.5
--- NOTE | 2021-06-10 11:57 | P.PN ---
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 This led to a biopsy which was positive for invasive carcinoma grade 1. On [id number] she had a left breast lumpectomy and sentinel node biopsy, pathology revealed the biopsy without definitive evidence of residual cancer, negative sentinel nodes, the original tumor was ER/MT positive and HER-2 negative. She declined radiation therapy. She was started on a limited inspection June 2015. The patient in July of 2019 had a stroke which led to significant left-sided weakness. She stopped Arimidex and Fosamax at that time. On she had an abnormal left breast mammogram which led to additional imaging and an ultrasound which revealed skin thickening and 0.6 cm lesion at the 7:00 left breast. Core biopsy on was positive for invasive ductal carcinoma ER/MT positive HER-2/joselny negative. She was felt to be a poor surgical candidate and was started on Aromasin. Note from Dr. Tirado reviewed from 06-02-21. She does complain of some discomfort and tenderness in the left breast in the lateral aspect. She has not noted any new discrete lumps masses or nodules. She has been having extensive physical therapy on her left shoulder which has aborted the pain that was present prior in the left shoulder. She has a bilateral mammogram and left breast ultrasound scheduled on July 19. Her last bilateral mammogram was on 06-03-20. Family History: mother: of breast cancer maternal grandmother: of breast cancer great grandmother: of breast cancer brother: lung cancer smoker Hormonal History: menarche: 11 , 2 miscarriages, breast fed: yes, age at first : 20 menopause: 43 BCP: 6 months Surgical history: Left breast lumpectomy and sentinel node biopsy Medical history: CVA: little use of left arm therapy to walk, weak left leg IBS type 2 DM neuro burning A-fib CVA Patient has been on Macrobid daily for months secondary to frequent bladder infections if she were to stop this Social History: smoke: stopped 30 years ago, used to smoke 1/PPD for 5 years alcohol: occasional drugs: none - Constitutional Constitutional: Denies chills, Denies fever - EENT Comment: wears glasses Ears: bilateral: decreased hearing, deny: tinnitus Ears, nose, mouth and throat: Denies headache, Denies sore throat - Breasts Breasts: bilateral: as per HPI - Cardiovascular Cardiovascular: Denies chest pain, Denies shortness of breath - Respiratory Respiratory: Denies cough - Gastrointestinal Comment: IBS - Genitourinary (Female) Genitourinary: Denies dysuria, Denies hematuria - Menstruation Menstruation: Reports postmenopausal - Musculoskeletal Comment: CVA left side week, arthritis in hands - Integumentary Integumentary: Reports as per HPI - Neurological Comment: CVA - Psychiatric Psychiatric: Reports anxiety - Endocrine Comment: DM - Hematologic/Lymphatic Comment: A-Fib, takes eliquis - Allergic/Immunologic Comment: food, spices Allergic/Immunologic: Reports as per HPI, Reports seasonal allergies Objective - Vital Signs Vital signs: Vital Signs Temp 98.5 F 06/10/21 11:21 Pulse 88 06/10/21 11:21 Resp 16 06/10/21 11:21 BP 150/78 06/10/21 11:21 Pulse Ox Intake & Output 06/09/21 06/10/21 06/10/21 18:59 06:59 18:59 Weight 81.647 kg - Exam BMI 27.4 - Constitutional General appearance: Present: cooperative - EENT Eyes: Present: EOMI ENT: Present: hearing grossly normal - Neck Neck: Present: normal ROM - Respiratory Respiratory: bilateral: CTA - Cardiovascular Heart sounds: normal: S1, S2 - Gastrointestinal General gastrointestinal: Present: soft - Integumentary Integumentary Comment(s): thickening of the left lateral breast - Musculoskeletal Musculoskeletal Comment(s): wheel chair dependant - Psychiatric Psychiatric: Present: A&O x's 3, appropriate affect, intact judgment & insight - Additional findings Additional findings: Breast Exam: BRA: 38B inspection: bilateral grade 3 ptosis palpation: right breast: Examination does not reveal any dominant masses or nodules of concern Right axilla: No adenopathy of concern Left breast: Thickening in the lateral inferior aspect. Known biopsy was performed Left axilla: No adenopathy of concern Assessment and Plan Assessment: Impression: CVA: little use of left arm therapy to walk, weak left leg IBS type 2 DM neuro burning A-fib CVA left breast stage 1 invasive ductal cancer; treated with aromisin not felt to be a good surgical candidate Plan: 1. bilateral mammogram and left breast ultrasound in June 2. follow up after mammogram and ultrasound CC: Dr. Augustus Fitzgerald
== END ==
LOC: WWCWWP 11:07
PROVIDERS: ATTEND Surgery
DX: C50.912 Malignant neoplasm of unspecified site of left female breast (principal); K58.9 Irritable bowel syndrome, unspecified; E11.9 Type 2 diabetes mellitus without complications; I48.91 Unspecified atrial fibrillation; Z86.73 Personal history of transient ischemic attack (TIA), and cerebral infarction without residual deficits; M62.81 Muscle weakness (generalized); Z87.891 Personal history of nicotine dependence; Z91.030 Bee allergy status

== ENCOUNTER 2021-06-22 12:25 | Emergency (ER) | payer MEDICARE ==
[2021-06-22 13:00] VITALS: RESP 20; TEMP 98.6
[2021-06-22] MEDS ORDERED: SODIUM CHLORIDE 0.9% 50 ML IVPB ONE (16:00)
[2021-06-22] MEDS ORDERED: SOTROVIMAB (EUA) 500 MG in SODIUM CHLORIDE 0.9% 100 ML IVPB ONE (16:30)
--- NOTE | 2021-06-22 16:45 | ED ---
General Adult HPI - General Chief complaint: Upper Respiratory Infection Stated complaint: covid+, cough Time Seen by Provider: 06/22/21 15:30 Source: patient, family, RN notes reviewed, old records reviewed Mode of arrival: wheelchair Limitations: no limitations - History of Present Illness Initial comments: 81-year-old female, alert and oriented 4, presents to the emergency room with 1 week of cough and congestion. She developed chills yesterday. She did test positive for coronavirus today. She was vaccinated and did get a booster. She has a history of breast cancer and is currently taking aromasin. She also has a history of diabetes, osteoarthritis, irritable bowel and stroke. She has left- sided weakness from her previous stroke. Vital signs are stable oxygen saturation 98% on room air. -: days(s) (7) Location: chest (cough and congestion) Associated Symptoms: cough, other (congestion) Treatments Prior to Arrival: none - Related Data Home Medications Medication Instructions Recorded Confirmed Glimepiride [Amaryl] 1 mg PO BID-W/MEALS 05/02/16 06/22/21 Pioglitazone [Actos] 15 mg PO DAILY 06/25/20 06/22/21 Exemestane [Aromasin] 25 mg PO DAILY 11/27/20 06/22/21 Acetaminophen [Tylenol 8 Hour] 650 mg PO Q6H PRN 06/22/21 06/22/21 Alendronate Sodium [Fosamax] 70 mg PO Q7D 06/22/21 06/22/21 EPINEPHrine (Auto Inject) [Epipen] 0.3 mg IM ONCE PRN 06/22/21 06/22/21 Isosorbide Mononitrate ER [Imdur] 30 mg PO DAILY 06/22/21 06/22/21 Metoprolol Succinate (ER) [Toprol 25 mg PO BID 06/22/21 06/22/21 Xl] Nitrofurantoin Monohyd/M-Cryst 100 mg PO DAILY 06/22/21 06/22/21 [Macrobid] Saxagliptin HCl [Onglyza] 5 mg PO DAILY 06/22/21 06/22/21 Previous Rx's Medication Instructions Recorded Apixaban [Eliquis] 2.5 mg PO BID tab 08/16/19 Aspirin 81 mg PO DAILY chew 08/16/19 Atorvastatin [Lipitor] 20 mg PO DAILY tab 08/16/19 lisinopriL [Zestril] 5 mg PO DAILY tab 08/16/19 Benzonatate [Tessalon Perles] 100 mg PO TID PRN #15 capsule 06/22/21 Allergies Allergy/AdvReac Type Severity Reaction Status Date / Time venom-honey bee Allergy Swelling Verified 06/22/21 12:56 [bee venom (honey bee)] Review of Systems ROS Statement: Those systems with pertinent positive or pertinent negative responses have been documented in the HPI. ROS Other: All systems not noted in ROS Statement are negative. Past Medical History Past Medical History: Cancer, CVA/TIA, Diabetes Mellitus, Osteoarthritis (OA) Additional Past Medical History / Comment(s): "SPASTIC BOWEL", HX OF SHINGLES, Kidney stones, IBS History of Any Multi-Drug Resistant Organisms: ESBL Date of last positivie culture/infection: 04/17/19 ESBL E.coli MDRO Source:: Urine Past Surgical History: Section, Tonsillectomy Additional Past Surgical History / Comment(s): Lumpectomy left breast with lymph node removal, stent to R Ureter in 2015. Past Anesthesia/Blood Transfusion Reactions: No Reported Reaction Additional Past Anesthesia/Blood Transfusion Reaction / Comment(s): muscle/nerve pain Past Psychological History: No Psychological Hx Reported Smoking Status: Former smoker Past Alcohol Use History: None Reported Past Drug Use History: None Reported - Past Family History Mother Family Medical History: Cancer Additional Family Medical History / Comment(s): MOTHER AND GRANDMOTHER HAD BREAST CANCER General Exam Limitations: no limitations, physical limitation (left sided weakness from CVA) General appearance: alert, in no apparent distress Head exam: Present: atraumatic, normocephalic, normal inspection Eye exam: Present: normal appearance ENT exam: Present: normal exam, normal oropharynx, mucous membranes moist Neck exam: Present: normal inspection, full ROM. Absent: tenderness, meningismus Respiratory exam: Present: normal lung sounds bilaterally. Absent: respiratory distress, wheezes, rhonchi, stridor, chest wall tenderness, accessory muscle use Cardiovascular Exam: Present: regular rate, normal rhythm, normal heart sounds GI/Abdominal exam: Present: soft. Absent: tenderness Back exam: Present: normal inspection, full ROM. Absent: tenderness, CVA tenderness (R), CVA tenderness (L), rash noted Neurological exam: Present: alert, oriented X3 Psychiatric exam: Present: normal affect, normal mood Skin exam: Present: warm, dry, intact, normal color. Absent: rash, cyanosis, diaphoretic, erythema, petechiae, pallor Course Vital Signs 06/22/21 06/22/21 06/22/21 12:56 17:24 18:05 Temperature 98.6 F Pulse Rate 73 78 82 Respiratory 20 20 20 Rate Blood Pressure 120/79 122/82 136/76 O2 Sat by Pulse 98 98 98 Oximetry Medical Decision Making - Medical Decision Making 78-year-old female presents to emergency room with 10 days of cough and congestion. She has been vaccinated against coronavirus and received her blister. She is being treated for breast cancer therefore meets criteria for monoclonal antibodies. She was agreeable to receiving and given the monoclonal antibodies. Vital signs are stable her oxygen saturation is 98% on room air. Patient was requesting something for her cough and was given Tessalon Perles prescription. She was instructed to self quarantine for 10 days from symptom onset. Follow-up with her primary care doctor next week. Return to the emergency room with any new or concerning symptoms. Case discussed with Dr. Bush - Lab Data Lab Results 06/22/21 Range/Units 13:02 Coronavirus (PCR) Detected A (Not Detectd) Disposition Clinical Impression: COVID-19 Disposition: HOME SELF-CARE Instructions (If sedation given, give patient instructions): Coronavirus Disease 2019 (COVID-19) Additional Instructions: Self quarantine for 10 days from symptom onset. Take vitamin C, vitamin D and zinc for immune health. You can take Tessalon Perles as prescribed every 8 hours as needed for cough. Return to the emergency room with any new or worsening symptoms including chest pain or shortness of breath. Follow-up with the primary care doctor next week. Prescriptions: Benzonatate [Tessalon Perles] 100 mg PO TID PRN #15 capsule PRN Reason: Cough Is patient prescribed a controlled substance at d/c from ED?: No Referrals: Augustus Fitzgerald MD [Primary Care Provider] - 1-2 days Time of Disposition: 18:45
[2021-06-22 18:36] VITALS: BP 136/76; PULSE 82
[2021-06-22] MEDS ORDERED: BENZONATATE 100 MG CAP PO STA (18:39)
== END 2021-06-22 18:53 | disposition home or self-care (01) ==
LOC: EC 12:25
DX: U07.1 COVID-19 (principal); E11.9 Type 2 diabetes mellitus without complications; M19.90 Unspecified osteoarthritis, unspecified site; Z85.3 Personal history of malignant neoplasm of breast; Z79.01 Long term (current) use of anticoagulants; Z79.82 Long term (current) use of aspirin; Z86.73 Personal history of transient ischemic attack (TIA), and cerebral infarction without residual deficits; Z87.442 Personal history of urinary calculi; Z87.891 Personal history of nicotine dependence
CPT/HCPCS: 99283; 87635; Q0247

== ENCOUNTER 2023-03-09 15:27 | Emergency (ER) | payer MEDICARE ==
--- NOTE | 2023-03-09 15:46 | ED ---
Fall HPI - General Chief Complaint: Fall Stated Complaint: hit back of head cement driveway Time Seen by Provider: 03/09/23 15:45 Source: patient, family Mode of arrival: wheelchair - History of Present Illness Initial Comments: 82-year-old female presenting with her daughter for evaluation post fall. Patient fell from standing hitting the back of her head on the driveway. No loss of consciousness. She is on eliquis. Patient has a hematoma to the back of the scalp. No nausea, vomiting, dizziness, vision or hearing changes, numbness, tingling, chest pain, difficulty breathing, abdominal pain. Patient has a baseline left sided arm weakness from previous stroke. - Related Data Home Medications Medication Instructions Recorded Confirmed Glimepiride [Amaryl] 1 mg PO BID-W/MEALS 05/02/16 06/22/21 Pioglitazone [Actos] 15 mg PO DAILY 06/25/20 06/22/21 Exemestane [Aromasin] 25 mg PO DAILY 11/27/20 06/22/21 Acetaminophen [Tylenol 8 Hour] 650 mg PO Q6H PRN 06/22/21 06/22/21 Alendronate Sodium [Fosamax] 70 mg PO Q7D 06/22/21 06/22/21 EPINEPHrine (Auto Inject) [Epipen] 0.3 mg IM ONCE PRN 06/22/21 06/22/21 Isosorbide Mononitrate ER [Imdur] 30 mg PO DAILY 06/22/21 06/22/21 Metoprolol Succinate (ER) [Toprol 25 mg PO BID 06/22/21 06/22/21 Xl] Nitrofurantoin Monohyd/M-Cryst 100 mg PO DAILY 06/22/21 06/22/21 [Macrobid] Saxagliptin HCl [Onglyza] 5 mg PO DAILY 06/22/21 06/22/21 Previous Rx's Medication Instructions Recorded Apixaban [Eliquis] 2.5 mg PO BID tab 08/16/19 Aspirin 81 mg PO DAILY chew 08/16/19 Atorvastatin [Lipitor] 20 mg PO DAILY tab 08/16/19 lisinopriL [Zestril] 5 mg PO DAILY tab 08/16/19 Benzonatate [Tessalon Perles] 100 mg PO TID PRN #15 capsule 06/22/21 Allergies Allergy/AdvReac Type Severity Reaction Status Date / Time venom-honey bee Allergy Swelling Verified 03/09/23 15:44 [bee venom (honey bee)] Review of Systems ROS Statement: Those systems with pertinent positive or pertinent negative responses have been documented in the HPI. ROS Other: All systems not noted in ROS Statement are negative. Past Medical History Past Medical History: Cancer, CVA/TIA, Diabetes Mellitus, Osteoarthritis (OA) Additional Past Medical History / Comment(s): "SPASTIC BOWEL", HX OF SHINGLES, Kidney stones, IBS History of Any Multi-Drug Resistant Organisms: ESBL Date of last positivie culture/infection: 04/17/19 ESBL E.coli MDRO Source:: Urine Past Surgical History: Section, Tonsillectomy Additional Past Surgical History / Comment(s): Lumpectomy left breast with lymph node removal, stent to R Ureter in 2015. Past Anesthesia/Blood Transfusion Reactions: No Reported Reaction Additional Past Anesthesia/Blood Transfusion Reaction / Comment(s): muscle/nerve pain Past Psychological History: No Psychological Hx Reported Smoking Status: Former smoker Past Alcohol Use History: None Reported Past Drug Use History: None Reported - Past Family History Mother Family Medical History: Cancer Additional Family Medical History / Comment(s): MOTHER AND GRANDMOTHER HAD BREAST CANCER General Exam - General Exam Comments Initial Comments: Visual Physical Exam Vital signs reviewed General: Well-appearing, nontoxic, no acute distress. Head: Normocephalic, large hematoma to the occipital portion of the scalp Eyes: PERRLA, EOMI ENT: Airway patent Chest: Nonlabored breathing Skin: No visual rash, normal skin tone Neuro: Alert and oriented 3 Musculoskeletal: No gross abnormalities Limitations: no limitations General appearance: alert, in no apparent distress Expanded Head exam: Present: hematoma (occipital) Eye exam: Present: normal appearance, EOMI. Absent: periorbital swelling Neck exam: Present: normal inspection, full ROM Respiratory exam: Present: normal lung sounds bilaterally. Absent: respiratory distress, wheezes, rales, rhonchi, stridor Cardiovascular Exam: Present: regular rate, normal rhythm, normal heart sounds. Absent: systolic murmur, diastolic murmur, rubs, gallop, clicks Extremities exam: Present: normal inspection. Absent: tenderness Neurological exam: Present: alert, oriented X3 Expanded Eye Response: (4) open spontaneously Motor Response: (6) obeys commands Verbal Response: (5) oriented Dilan Total: 15 Psychiatric exam: Present: normal affect, normal mood Skin exam: Present: warm, dry, intact, normal color. Absent: rash Course Vital Signs 03/09/23 03/09/23 03/09/23 15:42 16:59 18:01 Temperature 98 F 98.1 F Pulse Rate 51 L 66 68 Respiratory 16 18 18 Rate Blood Pressure 167/83 155/80 O2 Sat by Pulse 99 96 98 Oximetry Medical Decision Making - Medical Decision Making Was pt. sent in by a medical professional or institution (, [facility], SUGGESTION CLERK, urgent care, hospital, or long term...) When possible be specific @ -No Did you speak to anyone other than the patient for history (EMS, parent, family, police, friend...)? What history was obtained from this source @ -Spoke with family at bedside Did you review nursing and triage notes (agree or disagree)? Why? @ -I reviewed and agree with nursing and triage notes Were old charts reviewed (outside hosp., previous admission, EMS record, old EKG, old radiological studies, urgent care reports/EKG's, long term records)? Report findings @ -No old charts were reviewed Differential Diagnosis (chest pain, altered mental status, abdominal pain women, abdominal pain men, vaginal bleeding, weakness, fever, dyspnea, syncope, headache, dizziness, GI bleed, back pain, seizure, CVA, palpatations, mental health, musculoskeletal)? @ -Differential includes hematoma, intracranial hemorrhage, cervical spine fracture, skull fracture, this is not an all inclusive list EKG interpreted by me (3pts min.). @ -As above X-rays interpreted by me (1pt min.). @ -None done CT interpreted by me (1pt min.). @ -No acute fracture dislocation evident in the cervical spine. No acute intracranial hemorrhage, mass effect, or midline shift is seen U/S interpreted by me (1pt. min.). @ -None done What testing was considered but not performed or refused? (CT, X-rays, U/S, labs)? Why? @ -None What meds were considered but not given or refused? Why? @ -None Did you discuss the management of the patient with other professionals (professionals i.e. Dr., PA, SUGGESTION CLERK, lab, RT, psych nurse, psychotherapist social worker, oversize load pilot escort, teacher, interface control officer, case filler)? Give summary @ -No Was smoking cessation discussed for >3mins.? @ -No Was critical care preformed (if so, how long)? @ -No Were there social determinants of health that impacted care today? How? (Homelessness, low income, unemployed, alcoholism, drug addiction, transportation, low edu. Level, literacy, decrease access to med. care, group home, rehab)? @ -No Was there de-escalation of care discussed even if they declined (Discuss DNR or withdrawal of care, Hospice)? DNR status @ -No What co-morbidities impacted this encounter? (DM, HTN, Smoking, COPD, CAD, Cancer, CVA, ARF, Chemo, Hep., AIDS, mental health diagnosis, sleep apnea, morbid obesity)? @ -None Was patient admitted / discharged? Hospital course, mention meds given and route, prescriptions, significant lab abnormalities, going to OR and other pertinent info. @ -82-year-old female presenting with chief complaint of fall with head injury. She is on blood eliquis, no loss of consciousness. She has a large hematoma to the scalp. Physical exam is conducted. Negative CT of the brain and cervical spine. Patient and son are educated on these findings and alarm symptoms. Discharged home. Follow-up with PCP. Report back to ER with any new or worsening symptoms. Discussed return parameters and answered all questions. Patient conveyed verbal understanding and agreed to the plan. I discussed this case in detail with my attending Dr. Malcolm Undiagnosed new problem with uncertain prognosis? @ -No Drug Therapy requiring intensive monitoring for toxicity (Heparin, Nitro, Insulin, Cardizem)? @ -No Were any procedures done? @ -No Diagnosis/symptom? @ -Scalp hematoma, head injury Acute, or Chronic, or Acute on Chronic? @ -Acute Uncomplicated (without systemic symptoms) or Complicated (systemic symptoms)? @ -Uncomplicated Side effects of treatment? @ -No Exacerbation, Progression, or Severe Exacerbation? @ -No Poses a threat to life or bodily function? How? (Chest pain, [place], [place], pneumonia, PE, COPD, DKA, ARF, appy, cholecystitis, CVA, Diverticulitis, Homicidal, Suicidal, threat to staff... and all critical care pts) @ -Low likelihood Disposition Clinical Impression: Fall, Scalp hematoma Disposition: HOME SELF-CARE Condition: Good Instructions (If sedation given, give patient instructions): Fall Prevention for Older Adults (ED), Head Injury (ED) Additional Instructions: Follow-up with PCP. Report back to ER with any new or worsening symptoms. Is patient prescribed a controlled substance at d/c from ED?: No Referrals: Augustus Fitzgerald MD [Primary Care Provider] - 1-2 days Time of Disposition: 17:49
[2023-03-09 17:14] VITALS: RESP 18
--- NOTE | 2023-03-09 17:27 | CT ---
EXAMINATION TYPE: CT brain skylerine wo con DATE OF EXAM: 03/09/2023 COMPARISON: 08/14/2019 HISTORY: Fall, no LOC, on eliquis. Hematoma to back of head. CT DLP: 1432.6 mGycm. Automated Exposure Control for Dose Reduction was Utilized. TECHNIQUE: CT scan of the head and cervical spine are performed without contrast. FINDINGS: There is prominent subcutaneous soft tissue swelling over the left parietal bone. No underl lissette skull fracture. There is no acute intracranial hemorrhage, mass effect, or midline shift identif ied. The ventricles and sulci are within normal limits in size. The globes are intact and the visual ized sinuses are clear. Cervical spine is visualized in its entirety from C1 through upper thoracic levels and demonstrates s atisfactory alignment without evidence of acute fracture or dislocation. Prevertebral soft tissue ap pears within normal limits. Severe cervical spondylosis changes are seen at all levels. The C1-C2 art iculation is unremarkable. IMPRESSION: 1. There is no acute fracture or dislocation evident in the cervical spine. 2. No acute intracranial hemorrhage, mass effect, or midline shift is seen.
[2023-03-09 18:03] VITALS: BP 155/80; PULSE 68; TEMP 98.1
== END 2023-03-09 18:03 | disposition home or self-care (01) ==
LOC: EC 15:27
DX: S00.03XA Contusion of scalp, initial encounter (principal); E11.9 Type 2 diabetes mellitus without complications; M19.90 Unspecified osteoarthritis, unspecified site; Z86.73 Personal history of transient ischemic attack (TIA), and cerebral infarction without residual deficits; Z87.891 Personal history of nicotine dependence; Z79.1 Long term (current) use of non-steroidal anti-inflammatories (NSAID); Z79.84 Long term (current) use of oral hypoglycemic drugs; Z91.030 Bee allergy status; W18.30XA Fall on same level, unspecified, initial encounter
CPT/HCPCS: 70450; 72125; 99283